=== PATIENT | male | born 1985 | race Caucasian/White ===

== ENCOUNTER 2017-07-31 13:20 | Emergency (ER) | payer OTHER ==
[2017-07-31 13:33] VITALS: RESP 18
[2017-07-31] MEDS ORDERED: ceFAZolin 1,000 MG VIAL IM STA (14:52)
--- NOTE | 2017-07-31 15:01 | ED ---
Wound/Laceration HPI - General Chief Complaint: Wound/Laceration Stated Complaint: R arm laceration. [facility] Time Seen by Provider: 07/31/17 13:29 Source: patient Mode of arrival: ambulatory Limitations: no limitations - History of Present Illness Initial Comments: 32-year-old male patient presents to emergency department today for evaluation of laceration to the volar aspect of the right forearm. Injury occurred around 1500. Patient states that he was installing a window, states that he was cutting the window with a knife when the knife broke and he accidentally cut his forearm. Patient states that he is having some tingling to the right fourth and fifth digits, states there is muscle exposed. Patient states that he does have full range of motion of his hand and elbow. Patient denies any significant pain. Patient denies any other injuries. Patient denies any headache, neck pain, back pain, chest pain, shortness of breath, dizziness, weakness, abdominal pain, nausea, vomiting, or difficulties with bowel movements or urination. Patient's last tetanus vaccine was one year ago. - Related Data Previous Rx's Medication Instructions Recorded Cephalexin [Keflex] 500 mg PO QID #28 cap 07/31/17 Hydrocodone/Acetaminophen [Monroe 1 tab PO Q6HR PRN #15 tab 07/31/17 5-325] Allergies Allergy/AdvReac Type Severity Reaction Status Date / Time bee pollen Allergy Anaphylaxis Verified 07/31/17 14:11 Review of Systems ROS Statement: Those systems with pertinent positive or pertinent negative responses have been documented in the HPI. ROS Other: All systems not noted in ROS Statement are negative. Past Medical History Past Medical History: No Reported History History of Any Multi-Drug Resistant Organisms: None Reported Past Surgical History: No Surgical Hx Reported Past Psychological History: No Psychological Hx Reported Smoking Status: Never smoker Past Alcohol Use History: None Reported Past Drug Use History: None Reported General Exam Limitations: no limitations General appearance: alert, in no apparent distress Respiratory exam: Present: normal lung sounds bilaterally. Absent: respiratory distress, wheezes, rales, rhonchi, stridor Cardiovascular Exam: Present: regular rate, normal rhythm, normal heart sounds. Absent: systolic murmur, diastolic murmur, rubs, gallop, clicks Extremities exam: Present: full ROM, normal capillary refill, other (10 cm wide laceration to the volar aspect of the right forearm. Muscle, tendon, and ulnar artery is exposed. Ulnar artery does not appear to be damaged. There is a lacerated tendon present, detachment from the distal aspect is noted with no evidence of the proximal attachment. Patient has full range of motion of all fingers strengthened fingers is intact. Skin is pink, warm, and dry. Cap refills less than 3 seconds.). Absent: normal inspection, tenderness, pedal edema, joint swelling, calf tenderness Neurological exam: Present: alert, oriented X3, CN II-XII intact Psychiatric exam: Present: normal affect, normal mood Skin exam: Present: warm, dry, intact, normal color. Absent: rash Course Vital Signs 07/31/17 13:29 Temperature 97.1 F L Pulse Rate 77 Respiratory 18 Rate Blood Pressure 117/70 O2 Sat by Pulse 96 Oximetry Procedures - Laceration Laceration #1 Consent Obtained: verbal consent Time Out Performed: Yes Indication: laceration Site: upper extremity (Volar aspect of the right forearm starting near the wrist ) Size (cm): 10 Description: linear Depth: involves muscle layer, involves tendon Anesthetic Used: lidocaine 1% Anesthesia Technique: local infiltration Amount (mls): 16 Pre-repair: wound explored, irrigated extensively Type of Sutures: nylon Size of Sutures: 5-0 Number of Sutures: 6 Technique: simple, interrupted Patient Tolerated Procedure: well, no complications Additional Comments: Loose approximation of wound edges. Medical Decision Making - Medical Decision Making 32-year-old male patient presented to emergency department today for evaluation of laceration to the right forearm. Exploration of the wound did reveal tendon injury as well as involvement of muscle. Dr. Mayes my attending did come and evaluate the wound recommended a call to orthopedics. Did call and speak to Cathleen LARA for [facility] Dr. Coon, she stated to loosely approximate the laceration, apply dressing, and have the patient follow up for an appointment tomorrow for further evaluation of the wound and possible closure in the OR. 6 sutures were placed after extensive cleaning and irrigation. Patient was given an IM dose of in the ER. He was started on Keflex outpatient. He was given Monroe for pain control. His tetanus was up-to- date one year ago. Did call and obtain an appointment for patient [facility] tomorrow at 0950. Patient has been informed of this appointment and states he will keep it. Patient instructed to not remove dressing or get it wet until follow-up with orthopedics. Patient instructed to return here immediately for any new, worsening, or concerning symptoms. Patient verbalizes understanding and agrees with this plan. Disposition Clinical Impression: Laceration of forearm, right, with tendon involvement Disposition: HOME SELF-CARE Condition: Good Instructions: Care For Your Stitches (ED), Laceration (ED) Additional Instructions: You have an appointment tomorrow with Dr. Coon [facility] at 9:50 AM. Please do not miss this appointment. Keep the dressing in place until follow-up with orthopedics tomorrow. Complete antibiotic prescription in full. Do not submerse arm and any type of water or get wet until follow up. Work status to be determined by orthopedic physician. Return here immediately for any new, worsening, or concerning symptoms. Prescriptions: Cephalexin [Keflex] 500 mg PO QID #28 cap Hydrocodone/Acetaminophen [Monroe 5-325] 1 tab PO Q6HR PRN #15 tab PRN Reason: Pain Referrals: Penelope Fontaine MD [Primary Care Provider] - 1-2 days Time of Disposition: 14:54
[2017-07-31 15:27] VITALS: BP 154/89; PULSE 110; TEMP 97.5
== END 2017-07-31 15:28 | disposition home or self-care (01) ==
LOC: EC 13:20
DX: S51.811A Laceration without foreign body of right forearm, initial encounter (principal); Z91.030 Bee allergy status; W26.0XXA Contact with knife, initial encounter; Y93.89 Activity, other specified
CPT/HCPCS: 99282; 96372; 12004; J0690

== ENCOUNTER 2022-11-29 09:49 | Emergency (ER) | payer OTHER ==
[2022-11-29 09:52] VITALS: TEMP 97.5
[2022-11-29] MEDS ORDERED: LORazepam 2 MG/ML INJ IV STA (10:11)
--- NOTE | 2022-11-29 10:45 | ED ---
General Adult HPI - General Chief complaint: Anxiety Stated complaint: mental health Time Seen by Provider: 11/29/22 09:53 Source: patient, RN notes reviewed Mode of arrival: ambulatory Limitations: no limitations - History of Present Illness Initial comments: 37-year-old male presents emergency Department chief complaint of anxiety, chest pain. Patient states that he has a history of hypertension is not on current medications. Patient states that he felt like his heart was racing states she came very anxious, patient is tearful and crying over this event. Patient states that his pain no ulcers chest and his back hurts when he moves. Denies any rashes. Denies any nausea vomiting no prior cardiac disease otherwise. No history of lung disease patient does admit that he uses alcohol frequently. - Related Data Home Medications Medication Instructions Recorded Confirmed No Known Home Medications 11/29/22 11/29/22 Allergies Allergy/AdvReac Type Severity Reaction Status Date / Time bee pollen Allergy Anaphylaxis Verified 11/29/22 11:37 Review of Systems ROS Statement: Those systems with pertinent positive or pertinent negative responses have been documented in the HPI. ROS Other: All systems not noted in ROS Statement are negative. Past Medical History Past Medical History: No Reported History History of Any Multi-Drug Resistant Organisms: None Reported Past Surgical History: No Surgical Hx Reported Past Psychological History: Anxiety Past Alcohol Use History: None Reported Past Drug Use History: None Reported General Exam Limitations: no limitations General appearance: alert, in no apparent distress, anxious Head exam: Present: atraumatic, normocephalic, normal inspection Eye exam: Present: normal appearance, PERRL, EOMI. Absent: scleral icterus, conjunctival injection, periorbital swelling ENT exam: Present: normal exam, normal oropharynx, mucous membranes moist Neck exam: Present: normal inspection, full ROM. Absent: tenderness, meningismus, lymphadenopathy Respiratory exam: Present: normal lung sounds bilaterally. Absent: respiratory distress, wheezes, rales, rhonchi, stridor Cardiovascular Exam: Present: normal rhythm, tachycardia, normal heart sounds. Absent: systolic murmur, diastolic murmur, rubs, gallop, clicks GI/Abdominal exam: Present: soft, normal bowel sounds. Absent: distended, tenderness, guarding, rebound, rigid Neurological exam: Present: alert, oriented X3 Psychiatric exam: Present: anxious Course Vital Signs 11/29/22 11/29/22 11/29/22 09:49 11:39 12:45 Temperature 97.5 F L Pulse Rate 103 H 73 89 Respiratory 20 18 18 Rate Blood Pressure 167/107 140/74 139/89 O2 Sat by Pulse 100 97 97 Oximetry EKG Findings - EKG Comments: EKG Findings:: EKG performed at 9 37 sinus rhythm rate of 92 NM 137 QRS 87 QT/QTC [id number] - EKG Results: EKG: interpreted by JAILYN Medical Decision Making - Medical Decision Making 37-year-old male presented for anxiety. Patient did have some complaints of chest pain associated with. It did seem to be anxiety driven. Patient for wor kup and the labs, EKG and chest x-ray. Chest x-ray interpreted by me with no acute abnormality. Patient was ER by psychiatric services. Patient advised that needs reset up his treatment with [facility]. Return parameters were discussed. - Lab Data Result diagrams: 11/29/22 10:25 11/29/22 10:25 Lab Results 11/29/22 11/29/22 11/29/22 Range/Units 10:25 10:25 10:25 WBC 7.8 (3.8-10.6) k/uL RBC 4.90 (4.30-5.90) m/uL Hgb 16.1 (13.0-17.5) gm/dL Hct 45.9 (39.0-53.0) % MCV 93.7 (80.0-100.0) fL MCH 32.8 (25.0-35.0) pg MCHC 35.0 (31.0-37.0) g/dL RDW 12.1 (11.5-15.5) % Plt Count 326 (150-450) k/uL MPV 7.5 Neutrophils % 75 % Lymphocytes % 14 % Monocytes % 7 % Eosinophils % 2 % Basophils % 1 % Neutrophils # 5.9 (1.3-7.7) k/uL Lymphocytes # 1.1 (1.0-4.8) k/uL Monocytes # 0.5 (0-1.0) k/uL Eosinophils # 0.2 (0-0.7) k/uL Basophils # 0.1 (0-0.2) k/uL PT 10.0 (9.0-12.0) sec INR 0.9 (<1.2) APTT 25.6 (22.0-30.0) sec Sodium 138 (137-145) mmol/L Potassium 3.8 (3.5-5.1) mmol/L Chloride 104 (98-107) mmol/L Carbon Dioxide 22 (22-30) mmol/L Anion Gap 12 mmol/L BUN 14 (9-20) mg/dL Creatinine 0.82 (0.66-1.25) mg/dL Est GFR (CKD-EPI)AfAm >90 (>60 ml/min/1.73 sqM) Est GFR (CKD-EPI)NonAf >90 (>60 ml/min/1.73 sqM) Glucose 275 H (74-99) mg/dL Calcium 8.9 (8.4-10.2) mg/dL Magnesium 1.7 (1.6-2.3) mg/dL Total Bilirubin 0.6 (0.2-1.3) mg/dL AST 67 H (17-59) U/L ALT 56 H (4-49) U/L Alkaline Phosphatase 97 (38-126) U/L Troponin I (0.000-0.034) ng/mL Total Protein 7.1 (6.3-8.2) g/dL Albumin 4.2 (3.5-5.0) g/dL Urine Opiates Screen (NotDetected) Ur Oxycodone Screen (NotDetected) Urine Methadone Screen (NotDetected) Ur Propoxyphene Screen (NotDetected) Ur Barbiturates Screen (NotDetected) U Tricyclic Antidepress (NotDetected) Ur Phencyclidine Scrn (NotDetected) Ur Amphetamines Screen (NotDetected) U Methamphetamines Scrn (NotDetected) U Benzodiazepines Scrn (NotDetected) Urine Cocaine Screen (NotDetected) U Marijuana (THC) Screen (NotDetected) 11/29/22 11/29/22 Range/Units 10:25 13:07 WBC (3.8-10.6) k/uL RBC (4.30-5.90) m/uL Hgb (13.0-17.5) gm/dL Hct (39.0-53.0) % MCV (80.0-100.0) fL MCH (25.0-35.0) pg MCHC (31.0-37.0) g/dL RDW (11.5-15.5) % Plt Count (150-450) k/uL MPV Neutrophils % % Lymphocytes % % Monocytes % % Eosinophils % % Basophils % % Neutrophils # (1.3-7.7) k/uL Lymphocytes # (1.0-4.8) k/uL Monocytes # (0-1.0) k/uL Eosinophils # (0-0.7) k/uL Basophils # (0-0.2) k/uL PT (9.0-12.0) sec INR (<1.2) APTT (22.0-30.0) sec Sodium (137-145) mmol/L Potassium (3.5-5.1) mmol/L Chloride (98-107) mmol/L Carbon Dioxide (22-30) mmol/L Anion Gap mmol/L BUN (9-20) mg/dL Creatinine (0.66-1.25) mg/dL Est GFR (CKD-EPI)AfAm (>60 ml/min/1.73 sqM) Est GFR (CKD-EPI)NonAf (>60 ml/min/1.73 sqM) Glucose (74-99) mg/dL Calcium (8.4-10.2) mg/dL Magnesium (1.6-2.3) mg/dL Total Bilirubin (0.2-1.3) mg/dL AST (17-59) U/L ALT (4-49) U/L Alkaline Phosphatase (38-126) U/L Troponin I <0.012 (0.000-0.034) ng/mL Total Protein (6.3-8.2) g/dL Albumin (3.5-5.0) g/dL Urine Opiates Screen Not Detected (NotDetected) Ur Oxycodone Screen Not Detected (NotDetected) Urine Methadone Screen Not Detected (NotDetected) Ur Propoxyphene Screen Not Detected (NotDetected) Ur Barbiturates Screen Not Detected (NotDetected) U Tricyclic Antidepress Not Detected (NotDetected) Ur Phencyclidine Scrn Not Detected (NotDetected) Ur Amphetamines Screen Not Detected (NotDetected) U Methamphetamines Scrn Not Detected (NotDetected) U Benzodiazepines Scrn Not Detected (NotDetected) Urine Cocaine Screen Not Detected (NotDetected) U Marijuana (THC) Screen Not Detected (NotDetected) Disposition Clinical Impression: Acute anxiety, Atypical chest pain, Panic attack Disposition: HOME SELF-CARE Condition: Stable Instructions (If sedation given, give patient instructions): Generalized Anxiety Disorder (ED) Additional Instructions: Please return to the Emergency Department if symptoms worsen or any other concerns. Is patient prescribed a controlled substance at d/c from ED?: No Referrals: Nonstaff,Physician [Primary Care Provider] - 1-2 days Time of Disposition: 14:01
[2022-11-29 10:54] LABS: Basophils # (A) 0.1 k/uL (0-0.2); Basophils % (A) 1 %; Eosinophils # (A) 0.2 k/uL (0-0.7); Eosinophils % (A) 2 %; HCT 45.9 % (39.0-53.0); HGB 16.1 gm/dL (13.0-17.5); Lymphocytes # (A) 1.1 k/uL (1.0-4.8); Lymphocytes % (A) 14 %; MCH 32.8 pg (25.0-35.0); MCV 93.7 fL (80.0-100.0); Mean Platelet Volume 7.5; Monocytes # (A) 0.5 k/uL (0-1.0); Monocytes % (A) 7 %; Neutrophils # (A) 5.9 k/uL (1.3-7.7); Neutrophils % (A) 75 %; Platelet Count 326 k/uL (150-450); RDW 12.1 % (11.5-15.5); WBC 7.8 k/uL (3.8-10.6)
[2022-11-29 11:03] LABS: INR 0.9 (<1.2); Partial Thromboplastin Time 25.6 sec (22.0-30.0)
--- NOTE | 2022-11-29 11:22 | XR ---
EXAMINATION TYPE: XR chest 2V DATE OF EXAM: 11/29/2022 COMPARISON: None INDICATION: Chest pain TECHNIQUE: Frontal and lateral views of the chest are obtained. FINDINGS: The heart size is normal. The pulmonary vasculature is normal. The lungs are clear. IMPRESSION: 1. No acute pulmonary process.
[2022-11-29 11:40] VITALS: RESP 18
[2022-11-29 11:40] LABS: Potassium 3.8 mmol/L (3.5-5.1)
[2022-11-29 11:41] LABS: ALT 56 U/L (4-49); AST 67 U/L (17-59); African American GFR (CKD) >90 (>60 ml/min/1.73 sqM); Albumin 4.2 g/dL (3.5-5.0); Alkaline Phosphatase 97 U/L (38-126); Anion Gap 12 mmol/L; Blood Urea Nitrogen 14 mg/dL (9-20); Calcium 8.9 mg/dL (8.4-10.2); Carbon Dioxide 22 mmol/L (22-30); Chloride 104 mmol/L (98-107); Glucose 275 mg/dL (74-99); Magnesium 1.7 mg/dL (1.6-2.3); Non-African American GFR(CKD) >90 (>60 ml/min/1.73 sqM); Sodium 138 mmol/L (137-145); Total Bilirubin 0.6 mg/dL (0.2-1.3); Total Protein 7.1 g/dL (6.3-8.2)
[2022-11-29 13:34] LABS: Amphetamine Screen,Urine Not Detected (NotDetected); Barbiturate Screen,Urine Not Detected (NotDetected); Benzodiazepines Screen,Urine Not Detected (NotDetected); Cocaine Screen,Urine Not Detected (NotDetected); Methadone Screen, Urine Not Detected (NotDetected); Opiate Screen,Urine Not Detected (NotDetected); Oxycodone Screen, Urine Not Detected (NotDetected); Phencyclidine Screen,Urine Not Detected (NotDetected); Tricyclic Antidepressant,Urine Not Detected (NotDetected); Urn Cannabinoid Scrn Not Detected (NotDetected)
[2022-11-29 14:20] VITALS: BP 147/101; PULSE 91
== END 2022-11-29 14:20 | disposition home or self-care (01) ==
LOC: EC 09:49
DX: F41.0 Panic disorder [episodic paroxysmal anxiety] (principal); R07.89 Other chest pain; Z91.030 Bee allergy status
CPT/HCPCS: 82075; 36415; 93005; 80053; 83735; 84484; 85025; 85610; 85730; 80306; 71046; 99284; 96374; J2060

== ENCOUNTER 2024-08-26 22:14 | Inpatient (IN) | payer OTHER ==
[2024-08-26] MEDS: LORazepam 2 MG/ML INJ IV STA (22:49)
--- NOTE | 2024-08-26 22:55 | ED ---
General Adult HPI - General Chief complaint: Alcohol Stated complaint: ETOH withdraw Time Seen by Provider: 08/26/24 22:21 Source: patient, RN notes reviewed, old records reviewed Mode of arrival: EMS Limitations: no limitations - History of Present Illness Initial comments: 39-year-old male history of EtOH abuse presenting with seizure. Patient has pr evious history of alcohol withdrawal seizure. Patient states he has been attempting to reduce his alcohol consumption over the past 2 weeks. Patient had seizure at home with postictal phase. He reports tremor. He does not want to be here currently but is agreeable with laboratory testing. No suicidal or homicidal ideation - Related Data Home Medications Medication Instructions Recorded Confirmed No Known Home Medications 11/29/22 11/29/22 Allergies Allergy/AdvReac Type Severity Reaction Status Date / Time bee pollen Allergy Anaphylaxis Verified 08/26/24 22:30 Review of Systems ROS Statement: Those systems with pertinent positive or pertinent negative responses have been documented in the HPI. ROS Other: All systems not noted in ROS Statement are negative. 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 Absent: tenderness, meningismus Respiratory exam: Present: normal lung sounds bilaterally. Absent: respiratory distress, wheezes Cardiovascular Exam: Present: regular rate, normal rhythm GI/Abdominal exam: Present: soft. Absent: distended, tenderness, guarding Neurological exam: Present: alert, oriented X3, CN II-XII intact. Absent: motor sensory deficit Psychiatric exam: Present: normal affect, normal mood Course Vital Signs 08/26/24 22:15 Temperature 97.7 F Pulse Rate 83 Respiratory 18 Rate Blood Pressure 180/106 O2 Sat by Pulse 93 L Oximetry Medical Decision Making - Medical Decision Making Was pt. sent in by a medical professional or institution (, PA, MAC ARTIST, urgent care, hospital, or jail...) When possible be specific @ -No Did you speak to anyone other than the patient for history (EMS, parent, family, police, friend...)? What history was obtained from this source @ -No Did you review nursing and triage notes (agree or disagree)? Why? @ -I reviewed and agree with nursing and triage notes Were old charts reviewed (outside hosp., previous admission, EMS record, old EKG, old radiological studies, urgent care reports/EKG's, jail records)? Report findings @ -No old charts were reviewed Differential Seizure: Recurrent seizure disorder, febrile seizure, alcohol withdrawal, stimulants, meningitis, encephalitis, intercranial hemorrhage, intracranial tumor, stroke, eclampsia, thyrotoxicosis, hypocalcemia, hyponatremia, hypernatremia, hypomagnesemia, psychogenic, this is not meant to be an all-inclusive list. EKG interpreted by me (3pts min.). @ -EKG: Sinus rhythm rate of 87, KS interval 140, QRS duration 85, QTc [address] segment elevation. X-rays interpreted by me (1pt min.). @ -None done CT interpreted by me (1pt min.). @ -None done U/S interpreted by me (1pt. min.). @ -None done What testing was considered but not performed or refused? (CT, X-rays, U/S, labs)? Why? @ -None What meds were considered but not given or refused? Why? @ -None Did you discuss the management of the patient with other professionals (professionals i.e. , PA, MAC ARTIST, lab, RT, psych nurse, social media campaign manager, vinyl dipper, teacher, chief business officer, case technician)? Give summary @ -Gladys covering for [facility] Was smoking cessation discussed for >3mins.? @ -No Was critical care preformed (if so, how long)? @ -No Were there social determinants of health that impacted care today? How? (Homelessness, low income, unemployed, alcoholism, drug addiction, transportatio n, low edu. Level, literacy, decrease access to med. care, senior living, rehab)? @ -No Was there de-escalation of care discussed even if they declined (Discuss DNR or withdrawal of care, Hospice)? DNR status @ -No What co-morbidities impacted this encounter? (DM, HTN, Smoking, COPD, CAD, Cancer, CVA, ARF, Chemo, Hep., AIDS, mental health diagnosis, sleep apnea, morbid obesity)? @ -None Was patient admitted / discharged? Hospital course, mention meds given and route, prescriptions, significant lab abnormalities, going to OR and other pertinent info. @ -[29-year-old male with seizure likely related to alcohol withdrawal. Patient drinks significant liquor daily but has been attempting to reduce his consumption in the past 2 weeks. Patient is hypernatremic and has an alcohol 350. Admitted to [facility] with concern for alcohol withdrawal, seizure, delirium tremens Undiagnosed new problem with uncertain prognosis? @ -No Drug Therapy requiring intensive monitoring for toxicity (Heparin, Nitro, Insulin, Cardizem)? @ -No Were any procedures done? @ -No Diagnosis/symptom? @Alcohol withdrawal seizure Acute, or Chronic, or Acute on Chronic? @ -Acute Uncomplicated (without systemic symptoms) or Complicated (systemic symptoms)? @ -Complicated Side effects of treatment? @ -No Exacerbation, Progression, or Severe Exacerbation? @ -No Poses a threat to life or bodily function? How? (Chest pain, USA, CT, pneumonia, PE, COPD, DKA, ARF, appy, cholecystitis, CVA, Diverticulitis, Homicidal, Suicidal, threat to staff... and all critical care pts) @ -Yes, delirium tremens, alcohol withdrawal seizure - Lab Data Result diagrams: 08/26/24 22:22 08/26/24 22:22 Lab Results 08/26/24 08/26/24 Range/Units 22:22 22:22 WBC 4.9 (3.8-10.6) k/uL RBC 4.52 (4.30-5.90) m/uL Hgb 15.8 (13.0-17.5) gm/dL Hct 45.8 (39.0-53.0) % MCV 101.4 H (80.0-100.0) fL MCH 34.9 (25.0-35.0) pg MCHC 34.4 (31.0-37.0) g/dL RDW 13.5 (11.5-15.5) % Plt Count 247 (150-450) k/uL MPV 7.7 Neutrophils % 48 % Lymphocytes % 36 % Monocytes % 9 % Eosinophils % 3 % Basophils % 1 % Neutrophils # 2.3 (1.3-7.7) k/uL Lymphocytes # 1.7 (1.0-4.8) k/uL Monocytes # 0.5 (0-1.0) k/uL Eosinophils # 0.2 (0-0.7) k/uL Basophils # 0.1 (0-0.2) k/uL Macrocytosis Slight Sodium 146 H (137-145) mmol/L Potassium 3.8 (3.5-5.1) mmol/L Chloride 109 H (98-107) mmol/L Carbon Dioxide 28 (22-30) mmol/L Anion Gap 9 mmol/L BUN 7 L (9-20) mg/dL Creatinine 0.70 (0.66-1.25) mg/dL Est GFR (CKD-EPI)AfAm >90 (>60 ml/min/1.73 sqM) Est GFR (CKD-EPI)NonAf >90 (>60 ml/min/1.73 sqM) Glucose 115 H (74-99) mg/dL Calcium 9.2 (8.4-10.2) mg/dL Magnesium 1.8 (1.6-2.3) mg/dL Total Bilirubin 0.6 (0.2-1.3) mg/dL AST 83 H (17-59) U/L ALT 44 (4-49) U/L Alkaline Phosphatase 90 (38-126) U/L Total Protein 7.5 (6.3-8.2) g/dL Albumin 4.5 (3.5-5.0) g/dL Serum Alcohol 356 H* mg/dL Disposition Clinical Impression: Alcohol withdrawal syndrome, Alcohol withdrawal seizure, Alcoholic intoxication Disposition: ADMITTED IP TO THIS HOSP Condition: Serious Is patient prescribed a controlled substance at d/c from ED?: No Referrals: None,Stated [Primary Care Provider] - 1-2 days Time of Disposition: 23:53
[2024-08-26 23:26] LABS: ALT 44 U/L (4-49); AST 83 U/L (17-59); African American GFR (CKD) >90 (>60 ml/min/1.73 sqM); Albumin 4.5 g/dL (3.5-5.0); Alkaline Phosphatase 90 U/L (38-126); Anion Gap 9 mmol/L; Blood Urea Nitrogen 7 mg/dL (9-20); Calcium 9.2 mg/dL (8.4-10.2); Carbon Dioxide 28 mmol/L (22-30); Chloride 109 mmol/L (98-107); Glucose 115 mg/dL (74-99); Magnesium 1.8 mg/dL (1.6-2.3); Non-African American GFR(CKD) >90 (>60 ml/min/1.73 sqM); Potassium 3.8 mmol/L (3.5-5.1); Sodium 146 mmol/L (137-145); Total Bilirubin 0.6 mg/dL (0.2-1.3); Total Protein 7.5 g/dL (6.3-8.2)
[2024-08-26 23:27] LABS: Basophils # (A) 0.1 k/uL (0-0.2); Basophils % (A) 1 %; Eosinophils # (A) 0.2 k/uL (0-0.7); Eosinophils % (A) 3 %; HCT 45.8 % (39.0-53.0); HGB 15.8 gm/dL (13.0-17.5); Lymphocytes # (A) 1.7 k/uL (1.0-4.8); Lymphocytes % (A) 36 %; MCH 34.9 pg (25.0-35.0); MCHC 34.4 g/dL (31.0-37.0); MCV 101.4 fL (80.0-100.0); Macrocytosis Slight; Mean Platelet Volume 7.7; Monocytes # (A) 0.5 k/uL (0-1.0); Monocytes % (A) 9 %; Neutrophils # (A) 2.3 k/uL (1.3-7.7); Neutrophils % (A) 48 %; Platelet Count 247 k/uL (150-450); RBC 4.52 m/uL (4.30-5.90); RDW 13.5 % (11.5-15.5); WBC 4.9 k/uL (3.8-10.6)
[2024-08-26 23:44] LABS: Alcohol 356 mg/dL
[2024-08-26] MEDS ORDERED: LORazepam 2 MG/ML INJ IV PRN (23:47)
[2024-08-26] MEDS ORDERED: NALOXONE 0.4 MG/ML 1 ML VIAL IV PRN (23:49)
[2024-08-26] MEDS ORDERED: ONDANSETRON 4 MG/2 ML VIAL IVP PRN (23:49)
[2024-08-26] MEDS ORDERED: ACETAMINOPHEN TAB 325 MG TAB PO PRN (23:49)
[2024-08-26] MEDS: SODIUM CHLORIDE 0.9% 1,000 ML IV SCH (23:57)
[2024-08-26] MEDS: SODIUM CHLORIDE 0.9% 1,000 ML IV ONE (23:57)
[2024-08-27] MEDS: LORazepam 2 MG/ML INJ IV PRN ×2 (08:11→19:58)
--- NOTE | 2024-08-27 14:08 | P.HPIM ---
History of Present Illness H&P Date: 08/27/24 Patient is a 39-year-old male with a past medical history of alcohol abuse and alcohol withdrawal seizures presented to the emergency department with for seizure. He states that he drinks 1/5 per day but has been trying to cut back. He endorses previous seizures but does not take any medications nor has he seen a neurologist. He has stopped taking [facility] He endorses a tremor. Patient states a desire to leave. He denies chest pain, dyspnea, abdominal pain. EKG shows normal sinus rhythm. WBCs 4.9, hemoglobin 15.8, MCV 101.4, sodium 146, potassium 3.8, AST 83, ALT 44, serum alcohol 356. Afebrile, initial blood pressure 180/106 then has subsequently been normotensive/mildly hypotensive 98/62, saturating well on 2 L nasal cannula. ED documentation reviewed. Review of systems: Pertinent positives and negatives as discussed in HPI, a complete review of systems was performed and all other systems are negative. Family history: Father-autoimmune disease unsure, sister-diabetes mellitus type 1, mother-thyroid issues Social history: Tobacco: Denies Alcohol: 1/5 per day Recreational drugs: Denies Travel: Denies Occupation: Unemployed Physical examination: Vital signs are reviewed. General: No acute distress. AOx4. HEENT: Head exam is unremarkable. EOMI bilaterally. ACs patent. Nares patent. Lungs: Bilateral breath sounds present; no rhonchi, wheezes, or rales. Heart: Rate and rhythm are regular. S1-S2 present. No murmur/rub/gallops. Abdomen: Soft, nontender, nondistended. Bowel sounds present. Extremities: No edema present. Symmetric movement. Psych: Normal affect and mood. Cooperative. Assessment/Plan: Alcohol withdrawal seizure Delirium tremens CIWA protocol Hypertension No home medications to resume Monitor vital signs Alcohol abuse DVT prophylaxis: Mechanical Chronic conditions: Alcohol abuse, hypertension The patient is admitted with an anticipated more than 2 midnight stay for eval uation of alcohol withdrawal seizures. 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, Past Psychological History: Anxiety, Depression, PTSD Smoking Status: Never smoker Past Alcohol Use History: Daily, Heavy Past Drug Use History: None Reported Medications and Allergies Home Medications Medication Instructions Recorded Confirmed Type No Known Home Medications 11/29/22 08/27/24 History Allergies Allergy/AdvReac Type Severity Reaction Status Date / Time bee pollen Allergy Anaphylaxis Verified 08/27/24 07:54 Physical Exam Vitals: Vital Signs Temp Pulse Resp BP Pulse Ox 08/27/24 07:34 66 18 163/115 97 08/27/24 06:02 91 16 125/99 93 L 08/27/24 04:13 69 16 110/75 98 08/27/24 02:35 75 16 104/72 100 08/27/24 01:30 70 16 98/62 99 08/27/24 00:13 87 16 104/68 98 08/26/24 22:15 97.7 F 83 18 180/106 93 L Intake and Output 08/26/24 08/27/24 08/27/24 22:59 06:59 14:59 Other: Weight 74.843 kg Results CBC & Chem 7: 08/26/24 22:22 08/26/24 22:22 Labs: Abnormal Lab Results - Last 24 Hours (Table) 08/26/24 08/26/24 Range/Units 22:22 22:22 MCV 101.4 H (80.0-100.0) fL Sodium 146 H (137-145) mmol/L Chloride 109 H (98-107) mmol/L BUN 7 L (9-20) mg/dL Glucose 115 H (74-99) mg/dL AST 83 H (17-59) U/L Serum Alcohol 356 H* mg/dL
[2024-08-27 23:24] VITALS: RESP 16; TEMP 98.2
[2024-08-28 10:12] LABS: African American GFR (CKD) >90 (>60 ml/min/1.73 sqM); Anion Gap 5 mmol/L; Blood Urea Nitrogen 9 mg/dL (9-20); Calcium 9.3 mg/dL (8.4-10.2); Carbon Dioxide 30 mmol/L (22-30); Chloride 101 mmol/L (98-107); Glucose 99 mg/dL (74-99); Non-African American GFR(CKD) >90 (>60 ml/min/1.73 sqM); Potassium 3.9 mmol/L (3.5-5.1); Sodium 136 mmol/L (137-145)
[2024-08-28 12:17] VITALS: BP 162/104; PULSE 74
--- NOTE | 2024-08-28 12:46 | P.DS ---
Providers Date of admission: 08/26/24 23:50 Attending physician: Thor Bruno Primary care physician: Stated None Hospital Course: Final Diagnosis: Seizure secondary to alcohol withdrawal Alcohol withdrawals Hypertension Patient is a 39-year-old male with a past medical history of alcohol abuse and alcohol withdrawal seizures presented to the emergency department with for seizure. He states that he drinks 1/5 per day but has been trying to cut back. He endorses previous seizures but does not take any medications nor has he seen a neurologist. He has stopped taking all of his medications prescribed to him by the [facility]. He endorses a tremor. Patient states a desire to leave. He denies chest pain, dyspnea, abdominal pain. EKG shows normal sinus rhythm. WBCs 4.9, hemoglobin 15.8, MCV 101.4, sodium 146, potassium 3.8, AST 83, ALT 44, serum alcohol 356. Afebrile, initial blood pressure 180/106 then has subsequently been normotensive/mildly hypotensive 98/62, saturating well on 2 L nasal cannula. 08/28. Patient seen and examined. Reports feeling improved from yesterday. Patient is medically stable for discharge. Patient educated on importance of alcohol abstinence. Physical examination: Vital signs are reviewed. General: No acute distress. AOx4. Tremors present. HEENT: Head exam is unremarkable. EOMI bilaterally. ACs patent. Nares patent. Lungs: Bilateral breath sounds present; no rhonchi, wheezes, or rales. Heart: Rate and rhythm are regular. S1-S2 present. No murmur/rub/gallops. Abdomen: Soft, nontender, nondistended. Bowel sounds present. Extremities: No edema present. Symmetric movement. Psych: Normal affect and mood. Cooperative. Patient Condition at Discharge: Stable Plan - Discharge Summary Discharge Rx Participant: Yes New Discharge Prescriptions: New chlordiazePOXIDE HCl [Librium] 25 mg PO DIRECTED 6 Days #20 capsule Losartan [Cozaar] 25 mg PO DAILY 30 Days #30 tab Discharge Medication List Losartan [Cozaar] 25 mg PO DAILY 30 Days #30 tab 08/28/24 [Rx] chlordiazePOXIDE HCl [Librium] 25 mg PO DIRECTED 6 Days #20 capsule 08/28/24 [Rx] Follow up Appointment(s)/Referral(s): None,Stated [Primary Care Provider] - [facility] [REFERRING] - 1 Week Discharge/Stand Alone Forms: AA Meetings [facility] Substance Abuse Facilities Discharge Disposition: HOME SELF-CARE
[2024-08-28 14:11] VITALS: BMI 23.6
== END 2024-08-28 15:47 | disposition home or self-care (01) | DRG 897 ==
LOC: EC 22:14 → 3SCARD 23:50
PROVIDERS: ADMIT Hospitalist; ATTEND Hospitalist
DX: F10.139 Alcohol abuse with withdrawal, unspecified (principal); I10 Essential (primary) hypertension; R56.9 Unspecified convulsions; Z56.0 Unemployment, unspecified; Y90.8 Blood alcohol level of 240 mg/100 ml or more; Z91.128 Patient's intentional underdosing of medication regimen for other reason; Z71.41 Alcohol abuse counseling and surveillance of alcoholic; Z79.899 Other long term (current) drug therapy
CPT/HCPCS: 36415; 80048; 80053; 80320; 83735; 85025; 93005; 96361; 96374; 96375; 96376; 99285

== ENCOUNTER 2024-11-10 18:31 | Inpatient (IN) | payer OTHER ==
--- NOTE | 2024-11-10 18:44 | ED ---
Alcohol HPI - General Stated Complaint: ETOH? Time Seen by Provider: 11/10/24 18:43 Source: patient, family, RN notes reviewed - History of Present Illness Initial Comments: Quick [id number] male present emergency department with girlfriend and sister for concern of alcohol intoxication. Record of history is reported from family due to patient's intoxicated state. Reported that patient heavily abuses alcohol and a history of alcohol withdrawal alcohol drawl seizures. - Related Data Home Medications Medication Instructions Recorded Confirmed Cholecalciferol (Vitamin D3) 2,000 unit PO DAILY 11/11/24 11/11/24 [Vitamin D3 (50 Mcg = 2000 Iu) Chew Tab] EPINEPHrine (Auto Inject) [Epipen] 0.3 mg IM ONCE PRN 11/11/24 11/11/24 hydrOXYzine pamoate [Vistaril] 25 mg PO QID PRN 11/11/24 11/11/24 Previous Rx's Medication Instructions Recorded Losartan [Cozaar] 25 mg PO DAILY 30 Days #30 tab 08/28/24 Folic Acid 1 mg PO DAILY #30 tab 11/12/24 Multivitamins, Thera [Multivitamin 1 each PO DAILY #30 tab 11/12/24 (formulary)] Thiamine [Vitamin B-1] 100 mg PO DAILY #30 tablet 11/12/24 chlordiazePOXIDE HCl [Librium] 25 mg PO QID #12 cap 11/12/24 Allergies Allergy/AdvReac Type Severity Reaction Status Date / Time bee pollen Allergy Anaphylaxis Verified 11/11/24 11:42 bee venom protein (honey bee) Allergy Anaphylaxis Verified 11/11/24 11:45 Review of Systems ROS Statement: Those systems with pertinent positive or pertinent negative responses have been documented in the HPI. ROS Other: All systems not noted in ROS Statement are negative. 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, right eye surgery, right wrist surgery Past Anesthesia/Blood Transfusion Reactions: No Reported Reaction Past Psychological History: Anxiety, Depression, PTSD Smoking Status: Never smoker Past Alcohol Use History: Daily, Heavy Past Drug Use History: None Reported - Past Family History Father Additional Family Medical History / Comment(s): psoriasis Mother Family Medical History: Thyroid Disorder Sister(s) Family Medical History: Diabetes Mellitus General Exam - General Exam Comments Initial Comments: Visual Physical Exam Vital signs reviewed General: ill-appearing, intoxicated, no acute distress. Head: Normocephalic, atraumatic Eyes: PERRLA, EOMI ENT: Airway patent Chest: Nonlabored breathing Skin: No visual rash, normal skin tone Neuro: Alert and oriented 3 Musculoskeletal: No gross abnormalities Course Vital Signs 11/10/24 11/10/24 11/10/24 18:59 19:32 20:40 Temperature Pulse Rate 78 84 82 Respiratory 14 16 18 Rate Blood Pressure 158/121 145/105 135/89 O2 Sat by Pulse 100 100 100 Oximetry 11/10/24 11/10/24 11/10/24 20:59 21:17 21:40 Temperature Pulse Rate 107 H 83 81 Respiratory 18 16 20 Rate Blood Pressure 142/105 132/92 123/85 O2 Sat by Pulse 96 100 100 Oximetry 11/11/24 11/11/24 11/11/24 01:33 03:41 06:06 Temperature 97.3 F L 97.4 F L Pulse Rate 80 82 75 Respiratory 18 19 19 Rate Blood Pressure 123/88 125/83 O2 Sat by Pulse 98 94 L 95 Oximetry Medical Decision Making - Medical Decision Making I completed the quick note portion of this chart signed Marika Watts PA-C - Lab Data Result diagrams: 11/11/24 06:16 11/12/24 07:08 Lab Results 11/10/24 11/10/24 11/10/24 Range/Units 19:09 19:11 19:11 WBC 6.7 (3.8-10.6) k/uL RBC 5.42 (4.30-5.90) m/uL Hgb 17.7 H (13.0-17.5) gm/dL Hct 53.8 H (39.0-53.0) % MCV 99.3 (80.0-100.0) fL MCH 32.7 (25.0-35.0) pg MCHC 32.9 (31.0-37.0) g/dL RDW 13.2 (11.5-15.5) % Plt Count 323 (150-450) k/uL MPV 6.7 Neutrophils % 53 % Lymphocytes % 35 % Monocytes % 5 % Eosinophils % 3 % Basophils % 1 % Neutrophils # 3.6 (1.3-7.7) k/uL Lymphocytes # 2.4 (1.0-4.8) k/uL Monocytes # 0.4 (0-1.0) k/uL Eosinophils # 0.2 (0-0.7) k/uL Basophils # 0.1 (0-0.2) k/uL Sodium 148 H (137-145) mmol/L Potassium 4.4 (3.5-5.1) mmol/L Chloride 109 H (98-107) mmol/L Carbon Dioxide 26 (22-30) mmol/L Anion Gap 13 mmol/L BUN 10 (9-20) mg/dL Creatinine 0.81 (0.66-1.25) mg/dL Est GFR (CKD-EPI)AfAm >90 (>60 ml/min/1.73 sqM) Est GFR (CKD-EPI)NonAf >90 (>60 ml/min/1.73 sqM) Glucose 112 H (74-99) mg/dL POC Glucose (mg/dL) 101 (70-110) mg/dL POC Glu Medical Coding Manager ID [facility] Calcium 9.2 (8.4-10.2) mg/dL Magnesium 2.2 (1.6-2.3) mg/dL Total Bilirubin 0.6 (0.2-1.3) mg/dL AST 53 (17-59) U/L ALT 30 (4-49) U/L Alkaline Phosphatase 123 (38-126) U/L Total Protein 8.7 H (6.3-8.2) g/dL Albumin 5.2 H (3.5-5.0) g/dL Lipase 126 (23-300) U/L Salicylates <1.0 mg/dL Acetaminophen <10.0 ug/mL Serum Alcohol 423 H* mg/dL Disposition Clinical Impression: Alcoholic intoxication Disposition: ADMITTED IP TO THIS HOSP Is patient prescribed a controlled substance at d/c from ED?: No Decision to Admit Reason: Admit from EC
[2024-11-10 19:14] LABS: Glucose,Whole Blood 101 mg/dL (70-110)
[2024-11-10] MEDS: levETIRAcetam IV 500 MG/5 ML VIAL IVP STA (19:21)
[2024-11-10] MEDS: LORazepam 2 MG/ML INJ IV STA ×5 (19:22→21:52)
[2024-11-10 19:27] LABS: Basophils # (A) 0.1 k/uL (0-0.2); Basophils % (A) 1 %; Eosinophils # (A) 0.2 k/uL (0-0.7); Eosinophils % (A) 3 %; HCT 53.8 % (39.0-53.0); HGB 17.7 gm/dL (13.0-17.5); Lymphocytes # (A) 2.4 k/uL (1.0-4.8); Lymphocytes % (A) 35 %; MCH 32.7 pg (25.0-35.0); MCHC 32.9 g/dL (31.0-37.0); MCV 99.3 fL (80.0-100.0); Mean Platelet Volume 6.7; Monocytes # (A) 0.4 k/uL (0-1.0); Monocytes % (A) 5 %; Neutrophils # (A) 3.6 k/uL (1.3-7.7); Neutrophils % (A) 53 %; Platelet Count 323 k/uL (150-450); RBC 5.42 m/uL (4.30-5.90); RDW 13.2 % (11.5-15.5); WBC 6.7 k/uL (3.8-10.6)
[2024-11-10] MEDS ORDERED: LORazepam 1 MG TAB PO PRN ×3 (19:31)
[2024-11-10] MEDS ORDERED: NALOXONE 0.4 MG/ML 1 ML VIAL IV PRN (19:31)
[2024-11-10] MEDS ORDERED: ONDANSETRON 4 MG/2 ML VIAL IVP PRN (19:31)
[2024-11-10] MEDS ORDERED: LORazepam 0.5 MG TAB PO PRN (19:31)
[2024-11-10] MEDS: SODIUM CHLORIDE 0.9% 1,000 ML IV STA (19:32)
[2024-11-10] MEDS: LORazepam 2 MG/ML INJ IV PRN (19:56)
--- NOTE | 2024-11-10 20:24 | CT ---
EXAMINATION TYPE: CT brain hira wo con DATE OF EXAM: 11/10/2024 8:11 PM COMPARISON: None. CLINICAL INDICATION: Male, 39 years old with history of sz, Seizure possible alcohol withdrawls. AMS. TECHNIQUE: CT of the brain is performed utilizing 3 mm thick sections through the posterior fossa and 3 mm thick sections through the remaining calvarium. Study is performed within 24 hours of arrival to the hospital. Contrast used: mL of , (none if empty) CT DLP: 2139.6 mGycm, Automated exposure control for dose reduction was used. FINDINGS: No abnormal hyperdensity is present to suggest an acute intracranial hemorrhage. No mass lesion is evident. No acute infarcts are evident. Ventricles and sulci are appropriate for the patient age. Paranasal sinuses and mastoid air cells within the [id number] are clear. IMPRESSIONS: 1. No acute intracranial process. Follow-up MRI can be performed as clinically indicated. CT cervical spine. COMPARISON: None TECHNIQUE: CT of the cervical spine is performed in the axial plane at 2 mm thick sections. Reconstr ucted images in the coronal, and sagittal plane are reviewed on the computer. FINDINGS: No acute fractures are evident. There appears to be some sidebending scoliosis of the cervical spine sagittal plane image interpretat ion. Disc heights are preserved. Vertebral body heights are preserved. No spinal canal stenosis is evident. No neural foraminal stenosis is evident. IMPRESSION: 1. No acute osseous abnormality cervical spine [facility], , 11/10/2024 8:22 PM
[2024-11-10 20:29] LABS: ALT 30 U/L (4-49); AST 53 U/L (17-59); Acetaminophen <10.0 ug/mL; African American GFR (CKD) >90 (>60 ml/min/1.73 sqM); Albumin 5.2 g/dL (3.5-5.0); Alkaline Phosphatase 123 U/L (38-126); Anion Gap 13 mmol/L; Blood Urea Nitrogen 10 mg/dL (9-20); Calcium 9.2 mg/dL (8.4-10.2); Carbon Dioxide 26 mmol/L (22-30); Chloride 109 mmol/L (98-107); Glucose 112 mg/dL (74-99); Lipase 126 U/L (23-300); Magnesium 2.2 mg/dL (1.6-2.3); Non-African American GFR(CKD) >90 (>60 ml/min/1.73 sqM); Potassium 4.4 mmol/L (3.5-5.1); Salicylate <1.0 mg/dL; Sodium 148 mmol/L (137-145); Total Bilirubin 0.6 mg/dL (0.2-1.3); Total Protein 8.7 g/dL (6.3-8.2)
[2024-11-10] MEDS: DEXTROSE 5%-0.45% NACL 1,000 ML IV SCH (20:38)
[2024-11-10 21:10] LABS: Alcohol 423 mg/dL
[2024-11-11] MEDS: LORazepam 2 MG/ML INJ IV PRN ×2 (06:27→10:10)
[2024-11-11] MEDS: FOLIC ACID 1 MG TAB PO SCH (08:02)
[2024-11-11] MEDS: MULTIVITAMINS, THERA 1 EACH TAB PO SCH (08:02)
[2024-11-11 10:35] LABS: Basophils # (A) 0.11 X 10*3/uL (0.00-0.10); Basophils % (A) 1.9 %; Eosinophils % (A) 5.2 %; HGB 14.9 g/dL (13.0-17.0); Lymphocytes # (A) 1.46 X 10*3/uL (0.90-5.00); Lymphocytes % (A) 25.1 %; MCH 32.9 pg (27.0-32.0); MCHC 33.1 g/dL (32.0-37.0); MCV 99.3 FL (80.0-97.0); Mean Platelet Volume 9.4 FL (9.5-12.2); Monocytes # (A) 0.58 X 10*3/uL (0.20-1.00); NRBC Per 100 WBC 0 X 10*3/uL (0.00-0.01); Neutrophils # (A) 3.33 X 10*3/uL (1.80-7.70); Neutrophils % (A) 57.3 %; Platelet Count 268 X 10*3/uL (140-440); RBC 4.53 X 10*6/uL (4.40-5.60); RDW 13.7 % (11.5-14.5); WBC 5.81 X 10*3/uL (4.50-10.00)
[2024-11-11 10:56] LABS: ALT 23 U/L (10-49); AST 46 U/L (14-35); Alkaline Phosphatase 68 U/L (41-126); BUN/Creat Ratio 14.29 Ratio (12.00-20.00); Calcium 8.4 mg/dL (8.7-10.3); Carbon Dioxide 27.5 mmol/L (21.6-31.8); Chloride 107 mmol/L (96-109); Globulin 2.5 g/dL (1.6-3.3); Glucose 80 mg/dL (70-110); Magnesium 1.9 mg/dL (1.5-2.4); Phosphorus 3.5 mg/dL (2.4-5.1); Potassium 4.2 mmol/L (3.5-5.5); Sodium 146 mmol/L (135-145); Total Bilirubin 0.6 mg/dL (0.3-1.2); Total Protein 6.5 g/dL (6.2-8.2)
[2024-11-11] MEDS: chlordiazePOXIDE 25 MG CAP PO SCH (12:46)
[2024-11-11] MEDS: CHOLECALCIFEROL 25 MCG (1000 IU) TABLET PO SCH (12:46)
[2024-11-11] MEDS: LOSARTAN 25 MG TAB PO SCH (12:47)
[2024-11-11] MEDS: hydrOXYzine pamoate 25 MG CAP PO PRN (18:10)
[2024-11-12 03:41] VITALS: TEMP 97.9
--- NOTE | 2024-11-12 04:40 | P.HPIM ---
History of Present Illness H&P Date: 11/11/24 This is a 39-year-old male who presented to the emergency department with alcohol intoxication with concerns of acute alcohol withdrawal and seizures. Patient has a past medical history of hypertension, continued ongoing EtOH abuse, and an autoimmune disease along with anxiety/depression/PTSD. Patient does drink heavily daily per family at the bedside and also smokes and denies any other illicit drug use. Patient was admitted with [facility] protocol with seizures. Patient was given a dose of Keppra per ED. Patient has had history of EtOH withdrawal seizures previously. Patient has attempted to quit multiple times and has been unsuccessful. Patient will be started on Librium taper and also consult social work for resources regarding alcohol rehab. REVIEW OF SYSTEMS: CONSTITUTIONAL: No fever, no malaise, reports of fatigue. HEENT: No recent visual problems or hearing problems. Denied any sore throat. CARDIOVASCULAR: No chest pain, orthopnea, PND, no palpitations, no syncope. PULMONARY: No shortness of breath, no cough, no hemoptysis. GASTROINTESTINAL: No diarrhea, no nausea, no vomiting, no abdominal pain. NEUROLOGICAL: No headaches, no weakness, no numbness. HEMATOLOGICAL: Denies any bleeding or petechiae. GENITOURINARY: Denies any burning micturition, frequency, or urgency. MUSCULOSKELETAL/RHEUMATOLOGICAL: Denies any joint pain, swelling, or any muscle pain. ENDOCRINE: Denies any polyuria or polydipsia. The rest of the 14-point review of systems is negative. PHYSICAL EXAMINATION: GENERAL: The patient is asleep although arousable, alert and oriented x3, not in any acute distress. Well developed, well nourished. HEENT: Pupils are round and equally reacting to light. EOMI. No scleral icterus. No conjunctival pallor. Normocephalic, atraumatic. No pharyngeal erythema. No thyromegaly. CARDIOVASCULAR: S1 and S2 present. No murmurs, rubs, or gallops. PULMONARY: Chest is clear to auscultation, no wheezing or crackles. ABDOMEN: Soft, nontender, nondistended, normoactive bowel sounds. No palpable organomegaly. MUSCULOSKELETAL: No joint swelling or deformity. EXTREMITIES: No cyanosis, clubbing, or pedal edema. NEUROLOGICAL: Gross neurological examination did not reveal any focal deficits. SKIN: No rashes. Assessment: Acute alcohol intoxication with concerns of acute delirium tremens Alcohol withdrawal seizures with history of History of hypertension History of significant PTSD Anxiety/depression history Continued ongoing nicotine abuse Autoimmune disease per patient, maintained on daily steroid GI prophylaxis DVT prophylaxis Full code Plan: Patient was admitted with concerns of EtOH withdrawal and seizures Patient drinks daily heavily and has attempted to quit but has been unsuccessful. Social work on consult for resources Continue to monitor for any seizure-like activity Continue CIWA protocol and will add Librium taper Follow-up on repeat labs and replace electrolytes per protocol If patient continues to be weak, will add PT/OT therapy for evaluation The impression and plan of care has been dictated by Gladys Reis, Nurse Practitioner as directed. Dr. Kory MD I have performed a history and examination and MDM of this patient, discussed the same with the dictator, and agree with the dictator's assessment and plan as written ,documented as a scribe. Based on total visit time, I have performed more than 50% of the visit. 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, right eye surgery, right wrist surgery Past Anesthesia/Blood Transfusion Reactions: No Reported Reaction Past Psychological History: Anxiety, Depression, PTSD Smoking Status: Never smoker Past Alcohol Use History: Daily, Heavy Past Drug Use History: None Reported - Past Family History Father Additional Family Medical History / Comment(s): psoriasis Mother Family Medical History: Thyroid Disorder Sister(s) Family Medical History: Diabetes Mellitus Medications and Allergies Home Medications Medication Instructions Recorded Confirmed Type RX: Losartan [Cozaar] 25 mg PO DAILY 30 Days #30 tab 08/28/24 11/11/24 Rx Cholecalciferol (Vitamin D3) 2,000 unit PO DAILY 11/11/24 11/11/24 History [Vitamin D3 (50 Mcg = 2000 Iu) Chew Tab] EPINEPHrine (Auto Inject) [Epipen] 0.3 mg IM ONCE PRN 11/11/24 11/11/24 History hydrOXYzine pamoate [Vistaril] 25 mg PO QID PRN 11/11/24 11/11/24 History Allergies Allergy/AdvReac Type Severity Reaction Status Date / Time bee pollen Allergy Anaphylaxis Verified 11/11/24 11:42 bee venom protein (honey bee) Allergy Anaphylaxis Verified 11/11/24 11:45 Physical Exam Vitals: Vital Signs Temp Pulse Resp BP Pulse Ox 11/11/24 06:06 97.4 F L 75 19 125/83 95 11/11/24 03:41 97.3 F L 82 19 94 L 11/11/24 01:33 80 18 123/88 98 11/10/24 21:40 81 20 123/85 100 11/10/24 21:17 83 16 132/92 100 11/10/24 20:59 107 H 18 142/105 96 11/10/24 20:40 82 18 135/89 100 11/10/24 19:32 84 16 145/105 100 11/10/24 18:59 78 14 158/121 100 Intake and Output 11/10/24 11/11/24 11/11/24 22:59 06:59 14:59 Other: Weight 72.575 kg Results CBC & Chem 7: 11/11/24 06:16 11/11/24 06:16 Labs: Abnormal Lab Results - Last 24 Hours (Table) 11/10/24 11/10/24 Range/Units 19:11 19:11 Hgb 17.7 H (13.0-17.5) gm/dL Hct 53.8 H (39.0-53.0) % Sodium 148 H (137-145) mmol/L Chloride 109 H (98-107) mmol/L Glucose 112 H (74-99) mg/dL Total Protein 8.7 H (6.3-8.2) g/dL Albumin 5.2 H (3.5-5.0) g/dL Serum Alcohol 423 H* mg/dL
[2024-11-12 07:57] LABS: African American GFR (CKD) >90 (>60 ml/min/1.73 sqM); Anion Gap 4 mmol/L; Blood Urea Nitrogen 12 mg/dL (9-20); Calcium 9.6 mg/dL (8.4-10.2); Carbon Dioxide 30 mmol/L (22-30); Chloride 103 mmol/L (98-107); Glucose 93 mg/dL (74-99); Non-African American GFR(CKD) >90 (>60 ml/min/1.73 sqM); Potassium 4.4 mmol/L (3.5-5.1); Sodium 137 mmol/L (137-145)
[2024-11-12 09:02] VITALS: BP 163/109; PULSE 88; RESP 15
[2024-11-12 09:14] LABS: Amphetamine Screen,Urine Not Detected (NotDetected); Barbiturate Screen,Urine Not Detected (NotDetected); Benzodiazepines Screen,Urine Detected (NotDetected); Cocaine Screen,Urine Not Detected (NotDetected); Methadone Screen, Urine Not Detected (NotDetected); Opiate Screen,Urine Not Detected (NotDetected); Oxycodone Screen, Urine Not Detected (NotDetected); Phencyclidine Screen,Urine Not Detected (NotDetected); Tricyclic Antidepressant,Urine Not Detected (NotDetected); Urn Cannabinoid Scrn Not Detected (NotDetected)
--- NOTE | 2024-11-13 13:07 | P.DS ---
Providers Date of admission: 11/10/24 19:31 Expected date of discharge: 11/12/24 Attending physician: Thor Bruno Primary care physician: Stated None Hospital Course: Final diagnosis Acute alcohol intoxication with concerns of acute delirium tremens Alcohol withdrawal seizures, with history of, was given a dose of Keppra in ER and does not take Keppra outpatient History of hypertension History of significant PTSD Anxiety/depression history Continued ongoing nicotine abuse Autoimmune disease per patient, maintained on daily steroid GI prophylaxis DVT prophylaxis Full code Discharge disposition Patient is being discharged in a stable condition with guarded prognosis to home. Patient will follow-up with primary care provider in [place] in the outpatient setting upon discharge. Patient is to continue with Librium taper and strongly recommend inpatient alcohol rehab intake outpatient as scheduled. Total time taken is greater than 35 minutes. Hospital course This is a 39-year-old male who was recently admitted with alcohol intoxication with concerns of acute delirium tremens and alcohol withdrawal seizure. No further seizure-like activity noted and patient was given a loading dose of Keppra in the ER and placed on CIWA protocol. Patient was started on Librium taper and has not required Ativan and is much more awake and alert with steady gait. Patient will not continue on Keppra outpatient and has been instructed and strongly encouraged to attend inpatient alcohol rehab. Resources were provided and patient will continue a Librium taper on discharge. Family at the bedside with questions and concerns that were answered to the best of our ability. Currently no reports of chest pain, shortness of breath, or palpitations. Patient is afebrile. No reports of nausea or vomiting and patient is tolerating diet. Patient will be discharged home today. High risk for readmissions given patient's continued ongoing alcohol abuse and noncompliance. Physical exam: Gen: This is a 39-year-old male who is awake, alert and oriented x 3, well- developed, well-nourished HEENT: Head is atraumatic, normocephalic. Pupils equal, round. Sclerae is anicteric. NECK: Supple. No JVD. No lymphadenopathy. No thyromegaly. LUNGS: Clear to auscultation. No wheezes or rhonchi. No intercostal retractions. HEART: Regular rate and rhythm. No murmur. ABDOMEN: Soft. Bowel sounds are present. No masses. No tenderness. EXTREMITIES: No pedal edema. No calf tenderness. Mild tremors noted of upper extremities. NEUROLOGICAL: Patient is awake, alert and oriented x3. Cranial nerves 2 through 12 are grossly intact. Gait steady on exam Please refer to medication reconciliation sheet for a list of medications. The impression and plan of care has been dictated by Gladys Reis, Nurse Practitioner as directed. Dr. Kory MD I have performed a history and examination and MDM of this patient, discussed the same with the dictator, and agree with the dictator's assessment and plan as written ,documented as a scribe. Based on total visit time, I have performed more than 50% of the visit. Patient Condition at Discharge: Fair Plan - Discharge Summary New Discharge Prescriptions: New chlordiazePOXIDE HCl [Librium] 25 mg PO QID #12 cap Thiamine [Vitamin B-1] 100 mg PO DAILY #30 tablet Folic Acid 1 mg PO DAILY #30 tab Multivitamins, Thera [Multivitamin (formulary)] 1 each PO DAILY #30 tab Continue hydrOXYzine pamoate [Vistaril] 25 mg PO QID PRN PRN Reason: Anxiety EPINEPHrine (Auto Inject) [Epipen] 0.3 mg IM ONCE PRN PRN Reason: Anaphylaxis Cholecalciferol (Vitamin D3) [Vitamin D3 (50 Mcg = 2000 Iu) Chew Tab] 2,000 unit PO DAILY Losartan [Cozaar] 25 mg PO DAILY 30 Days #30 tab Discharge Medication List Losartan [Cozaar] 25 mg PO DAILY 30 Days #30 tab 08/28/24 [Rx] Cholecalciferol (Vitamin D3) [Vitamin D3 (50 Mcg = 2000 Iu) Chew Tab] 2,000 unit PO DAILY 11/11/24 [History] EPINEPHrine (Auto Inject) [Epipen] 0.3 mg IM ONCE PRN 11/11/24 [History] hydrOXYzine pamoate [Vistaril] 25 mg PO QID PRN 11/11/24 [History] Folic Acid 1 mg PO DAILY #30 tab 11/12/24 [Rx] Multivitamins, Thera [Multivitamin (formulary)] 1 each PO DAILY #30 tab 11/12/24 [Rx] Thiamine [Vitamin B-1] 100 mg PO DAILY #30 tablet 11/12/24 [Rx] chlordiazePOXIDE HCl [Librium] 25 mg PO QID #12 cap 11/12/24 [Rx] Follow up Appointment(s)/Referral(s): None,Stated [Primary Care Provider] - 1-2 days Activity/Diet/Wound Care/Special Instructions: Activity limited until follow-up Follow-up with primary care provider Follow-up with inpatient alcohol rehab Continue using Librium taper Avoid all alcohol use and exposure Discharge Disposition: HOME SELF-CARE
== END 2024-11-12 11:40 | disposition home or self-care (01) | DRG 897 ==
LOC: EC 18:31 → 4SSUR 19:31 → UNDODISIN 11-11 07:44 → 1SOBS 11-11 07:56
PROVIDERS: ADMIT Hospitalist; ATTEND Hospitalist
DX: F10.129 Alcohol abuse with intoxication, unspecified (principal); F32.A Depression, unspecified; F41.9 Anxiety disorder, unspecified; F43.10 Post-traumatic stress disorder, unspecified; I10 Essential (primary) hypertension; R56.9 Unspecified convulsions; Z79.899 Other long term (current) drug therapy; Z28.310 Unvaccinated for COVID-19; Z28.21 Immunization not carried out because of patient refusal
CPT/HCPCS: 36415; 70450; 72125; 80048; 80053; 80143; 80179; 80306; 80320; 83690; 83735; 84100; 85025; 96361; 96374; 96375; 96376; 99285

== ENCOUNTER 2024-11-14 22:51 | Observation (INO) | payer OTHER ==
--- NOTE | 2024-11-14 23:27 | ED ---
Alcohol HPI - General Chief Complaint: Alcohol Stated Complaint: Weakness Time Seen by Provider: 11/14/24 23:23 Source: patient, family, RN notes reviewed Mode of arrival: wheelchair Limitations: no limitations - History of Present Illness Initial Comments: 39-year-old male with history of alcohol use disorder and hypertension presenting to the ER with girlfriend for concerns for acute alcohol intoxication and withdrawal. Patient was discharged 2 days ago after being admitted for alcohol withdrawal seizures. Girlfriend reports patient has been "in and out of it" for 5 hours. States there was an episode where his eyes rolled back in his head. Patient was also complaining of bilateral leg pain that was relieved when he took a warm shower. Denies known fall or injury to the head. Denies blood thinners. Last drink was about 30 minutes ago. - Related Data Home Medications Medication Instructions Recorded Confirmed Cholecalciferol (Vitamin D3) 2,000 unit PO DAILY 11/11/24 11/11/24 [Vitamin D3 (50 Mcg = 2000 Iu) Chew Tab] EPINEPHrine (Auto Inject) [Epipen] 0.3 mg IM ONCE PRN 11/11/24 11/11/24 hydrOXYzine pamoate [Vistaril] 25 mg PO QID PRN 11/11/24 11/11/24 Previous Rx's Medication Instructions Recorded Losartan [Cozaar] 25 mg PO DAILY 30 Days #30 tab 08/28/24 Folic Acid 1 mg PO DAILY #30 tab 11/12/24 Multivitamins, Thera [Multivitamin 1 each PO DAILY #30 tab 11/12/24 (formulary)] Thiamine [Vitamin B-1] 100 mg PO DAILY #30 tablet 11/12/24 chlordiazePOXIDE HCl [Librium] 25 mg PO QID #12 cap 11/12/24 Allergies Allergy/AdvReac Type Severity Reaction Status Date / Time bee pollen Allergy Anaphylaxis Verified 11/14/24 23:00 bee venom protein (honey bee) Allergy Anaphylaxis Verified 11/14/24 23:00 Review of Systems ROS Statement: Those systems with pertinent positive or pertinent negative responses have been documented in the HPI. ROS Other: All systems not noted in ROS Statement are negative. 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, right eye surgery, right wrist surgery Past Anesthesia/Blood Transfusion Reactions: No Reported Reaction Past Psychological History: Anxiety, Depression, PTSD Smoking Status: Never smoker Past Alcohol Use History: Daily, Heavy Past Drug Use History: None Reported - Past Family History Father Additional Family Medical History / Comment(s): psoriasis Mother Family Medical History: Thyroid Disorder Sister(s) Family Medical History: Diabetes Mellitus General Exam Limitations: no limitations, altered mental status General appearance: other (Patient only responding to questions with nodding or shaking head) Head exam: Present: atraumatic, normocephalic, normal inspection Eye exam: Present: normal appearance, PERRL, EOMI. Absent: scleral icterus, conjunctival injection, periorbital swelling Respiratory exam: Present: normal lung sounds bilaterally. Absent: respiratory distress, wheezes, rales, rhonchi, stridor Cardiovascular Exam: Present: regular rate, normal rhythm, normal heart sounds. Absent: systolic murmur, diastolic murmur, rubs, gallop, clicks Skin exam: Present: warm, dry, intact, normal color. Absent: rash Course Vital Signs 11/14/24 11/14/24 11/15/24 22:54 23:51 00:45 Temperature 98.4 F 97.8 F Pulse Rate 95 108 H 87 Respiratory 16 16 16 Rate Blood Pressure 148/99 128/80 122/77 O2 Sat by Pulse 97 95 95 Oximetry Medical Decision Making - Medical Decision Making Was pt. sent in by a medical professional or institution (, PA, CHRONOGRAPH OPERATOR, urgent care, hospital, or [facility]...) When possible be specific @ -No Did you speak to anyone other than the patient for history (EMS, parent, family, police, friend...)? What history was obtained from this source @ -Girlfriend provided history Did you review nursing and triage notes (agree or disagree)? Why? @ -I reviewed and agree with nursing and triage notes Were old charts reviewed (outside hosp., previous admission, EMS record, old EKG, old radiological studies, urgent care reports/EKG's, [facility] records)? Report findings @ -No old charts were reviewed Differential Diagnosis (chest pain, altered mental status, abdominal pain women, abdominal pain men, vaginal bleeding, weakness, fever, dyspnea, syncope, headache, dizziness, GI bleed, back pain, seizure, CVA, palpatations, mental health, musculoskeletal)? @ -Acute alcohol intoxication, alcohol withdrawal EKG interpreted by me (3pts min.). @ -As above X-rays interpreted by me (1pt min.). @ -None done CT interpreted by me (1pt min.). @ -CT brain reveals no intracranial abnormality U/S interpreted by me (1pt. min.). @ -None done What testing was considered but not performed or refused? (CT, X-rays, U/S, labs)? Why? @ -None What meds were considered but not given or refused? Why? @ -None Did you discuss the management of the patient with other professionals (professionals i.e. , PA, CHRONOGRAPH OPERATOR, lab, RT, psych nurse, social media project manager, chief of anesthesiology, teacher, fire management officer, leather case finisher)? Give summary @ -No Was smoking cessation discussed for >3mins.? @ -No Was critical care preformed (if so, how long)? @ -No Were there social determinants of health that impacted care today? How? (Homelessness, low income, unemployed, alcoholism, drug addiction, transportation, low edu. Level, literacy, decrease access to med. care, custodial, rehab)? @ -No Was there de-escalation of care discussed even if they declined (Discuss DNR or withdrawal of care, Hospice)? DNR status @ -No What co-morbidities impacted this encounter? (DM, HTN, Smoking, COPD, CAD, Ca ncer, CVA, ARF, Chemo, Hep., AIDS, mental health diagnosis, sleep apnea, morbid obesity)? @ -None Was patient admitted / discharged? Hospital course, mention meds given and route, prescriptions, significant lab abnormalities, going to OR and other pertinent info. @ -Admitted. This is a 39-year-old male with history of alcohol withdrawal seizures presenting for acute alcohol intoxication. Was recently discharged 2 days ago after admission for withdrawal seizures. Patient's last drink was 30 minutes prior to arrival. Vital signs are within acceptable limits. Seizure precautions placed. CT brain reveals no intracranial abnormality. EKG reveals sinus tachycardia with no ST changes. Lab work remarkable for serum alcohol 298, lactic acid 2.2, creatinine kinase 358. Results discussed with patient. CIWA protocol initiated and patient admitted as he will likely withdrawal after acute intoxication. Case was discussed with my ED attending Dr. Sylvester. Undiagnosed new problem with uncertain prognosis? @ -No Drug Therapy requiring intensive monitoring for toxicity (Heparin, Nitro, Insu dona, Cardizem)? @ -No Were any procedures done? @ -No Diagnosis/symptom? @ -Acute alcohol intoxication Acute, or Chronic, or Acute on Chronic? @ -Acute Uncomplicated (without systemic symptoms) or Complicated (systemic symptoms)? @ -Complicated Side effects of treatment? @ -No Exacerbation, Progression, or Severe Exacerbation? @ -No Poses a threat to life or bodily function? How? (Chest pain, USA, AR, pneumonia, PE, COPD, DKA, ARF, appy, cholecystitis, CVA, Diverticulitis, Homicidal, Suicidal, threat to staff... and all critical care pts) @ -Yes, alcohol withdrawal seizures - Lab Data Result diagrams: 11/14/24 23:34 11/14/24 23:33 Lab Results 11/14/24 11/14/24 11/14/24 Range/Units 23:33 23:33 23:33 WBC (3.8-10.6) k/uL RBC (4.30-5.90) m/uL Hgb (13.0-17.5) gm/dL Hct (39.0-53.0) % MCV (80.0-100.0) fL MCH (25.0-35.0) pg MCHC (31.0-37.0) g/dL RDW (11.5-15.5) % Plt Count (150-450) k/uL MPV Neutrophils % % Lymphocytes % % Monocytes % % Eosinophils % % Basophils % % Neutrophils # (1.3-7.7) k/uL Lymphocytes # (1.0-4.8) k/uL Monocytes # (0-1.0) k/uL Eosinophils # (0-0.7) k/uL Basophils # (0-0.2) k/uL PT 9.6 L (10.0-12.5) sec INR 0.8 (<1.2) APTT 26.1 (22.0-30.0) sec Sodium 145 (137-145) mmol/L Potassium 4.0 (3.5-5.1) mmol/L Chloride 108 H (98-107) mmol/L Carbon Dioxide 25 (22-30) mmol/L Anion Gap 12 mmol/L BUN 10 (9-20) mg/dL Creatinine 0.67 (0.66-1.25) mg/dL Est GFR (CKD-EPI)AfAm >90 (>60 ml/min/1.73 sqM) Est GFR (CKD-EPI)NonAf >90 (>60 ml/min/1.73 sqM) Glucose 96 (74-99) mg/dL Plasma Lactic Acid Eldon 2.2 H* (0.7-2.0) mmol/L Calcium 9.1 (8.4-10.2) mg/dL Total Bilirubin 0.4 (0.2-1.3) mg/dL AST 42 (17-59) U/L ALT 25 (4-49) U/L Alkaline Phosphatase 101 (38-126) U/L Creatine Kinase 358 H (55-170) U/L Total Protein 7.4 (6.3-8.2) g/dL Albumin 4.6 (3.5-5.0) g/dL Lipase 123 (23-300) U/L Serum Alcohol 298 H* mg/dL 11/14/24 Range/Units 23:34 WBC 8.0 (3.8-10.6) k/uL RBC 4.70 (4.30-5.90) m/uL Hgb 15.4 (13.0-17.5) gm/dL Hct 46.2 (39.0-53.0) % MCV 98.4 (80.0-100.0) fL MCH 32.9 (25.0-35.0) pg MCHC 33.4 (31.0-37.0) g/dL RDW 13.4 (11.5-15.5) % Plt Count 244 (150-450) k/uL MPV 7.3 Neutrophils % 57 % Lymphocytes % 25 % Monocytes % 8 % Eosinophils % 6 % Basophils % 1 % Neutrophils # 4.5 (1.3-7.7) k/uL Lymphocytes # 2.0 (1.0-4.8) k/uL Monocytes # 0.6 (0-1.0) k/uL Eosinophils # 0.5 (0-0.7) k/uL Basophils # 0.1 (0-0.2) k/uL PT (10.0-12.5) sec INR (<1.2) APTT (22.0-30.0) sec Sodium (137-145) mmol/L Potassium (3.5-5.1) mmol/L Chloride (98-107) mmol/L Carbon Dioxide (22-30) mmol/L Anion Gap mmol/L BUN (9-20) mg/dL Creatinine (0.66-1.25) mg/dL Est GFR (CKD-EPI)AfAm (>60 ml/min/1.73 sqM) Est GFR (CKD-EPI)NonAf (>60 ml/min/1.73 sqM) Glucose (74-99) mg/dL Plasma Lactic Acid Eldon (0.7-2.0) mmol/L Calcium (8.4-10.2) mg/dL Total Bilirubin (0.2-1.3) mg/dL AST (17-59) U/L ALT (4-49) U/L Alkaline Phosphatase (38-126) U/L Creatine Kinase (55-170) U/L Total Protein (6.3-8.2) g/dL Albumin (3.5-5.0) g/dL Lipase (23-300) U/L Serum Alcohol mg/dL - EKG Data -: EKG Interpreted by Me EKG Comments: EKG reveals sinus tachycardia with no acute ST changes. Ventricular rate 102 bpm, ND interval 130, QRS duration 90, QT/QTc 318/376 Disposition Clinical Impression: Acute alcohol intoxication Disposition: ADMITTED IP TO THIS HOSP Referrals: None,Stated [Primary Care Provider] - 1-2 days Time of Disposition: 01:31
[2024-11-14 23:58] LABS: Basophils # (A) 0.1 k/uL (0-0.2); Basophils % (A) 1 %; Eosinophils # (A) 0.5 k/uL (0-0.7); Eosinophils % (A) 6 %; HCT 46.2 % (39.0-53.0); HGB 15.4 gm/dL (13.0-17.5); Lymphocytes % (A) 25 %; MCH 32.9 pg (25.0-35.0); MCHC 33.4 g/dL (31.0-37.0); MCV 98.4 fL (80.0-100.0); Mean Platelet Volume 7.3; Monocytes # (A) 0.6 k/uL (0-1.0); Monocytes % (A) 8 %; Neutrophils # (A) 4.5 k/uL (1.3-7.7); Neutrophils % (A) 57 %; Platelet Count 244 k/uL (150-450); RDW 13.4 % (11.5-15.5)
--- NOTE | 2024-11-15 00:07 | CT ---
EXAMINATION TYPE: CT brain wo con DATE OF EXAM: 11/15/2024 12:00 AM COMPARISON: None. CLINICAL INDICATION: Male, 39 years old with history of altered mental status, Hx ETOH abuse +ETOH to day. Pt. refusing to answer questions or provide information regarding visit today but nods yes when asked if he is here to detox. Pt. kicking wheelchair and asking staff to "shut up" when he does choos e to talk. Denies SI/HI. TECHNIQUE: CT of the brain is performed utilizing 3 mm thick sections through the posterior fossa and 3 mm thick sections through the remaining calvarium. Study is performed within 24 hours of arrival to the hospital. Contrast used: mL of , (none if empty) CT DLP: 1419.2 mGycm, Automated exposure control for dose reduction was used. FINDINGS: No abnormal hyperdensity is present to suggest an acute intracranial hemorrhage. No mass lesion is evident. No acute infarcts are evident. Ventricles and sulci are appropriate for the patient age. Paranasal sinuses and mastoid air cells within the [id number] are clear. IMPRESSION: 1. No acute intracranial process. Follow up MRI can be performed as clinically indicated. [facility], , 11/15/2024 12:04 AM
[2024-11-15 00:09] LABS: ALT 25 U/L (4-49); AST 42 U/L (17-59); African American GFR (CKD) >90 (>60 ml/min/1.73 sqM); Albumin 4.6 g/dL (3.5-5.0); Alkaline Phosphatase 101 U/L (38-126); Anion Gap 12 mmol/L; Blood Urea Nitrogen 10 mg/dL (9-20); Calcium 9.1 mg/dL (8.4-10.2); Carbon Dioxide 25 mmol/L (22-30); Chloride 108 mmol/L (98-107); Creatine Kinase 358 U/L (55-170); Glucose 96 mg/dL (74-99); Lipase 123 U/L (23-300); Non-African American GFR(CKD) >90 (>60 ml/min/1.73 sqM); Sodium 145 mmol/L (137-145); Total Bilirubin 0.4 mg/dL (0.2-1.3); Total Protein 7.4 g/dL (6.3-8.2)
[2024-11-15 00:11] LABS: INR 0.8 (<1.2); Partial Thromboplastin Time 26.1 sec (22.0-30.0); Prothrombin Time 9.6 sec (10.0-12.5)
[2024-11-15 00:51] LABS: Alcohol 298 mg/dL
[2024-11-15] MEDS: LORazepam 2 MG/ML INJ IV STA (01:09)
[2024-11-15] MEDS: SODIUM CHLORIDE 0.9% 1,000 ML IV STA (01:11)
[2024-11-15] MEDS ORDERED: ACETAMINOPHEN TAB 325 MG TAB PO PRN (01:25)
[2024-11-15] MEDS ORDERED: NALOXONE 0.4 MG/ML 1 ML VIAL IV PRN (01:25)
[2024-11-15] MEDS ORDERED: LORazepam 0.5 MG TAB PO PRN (01:29)
[2024-11-15] MEDS ORDERED: LORazepam 1 MG TAB PO PRN ×4 (01:29)
[2024-11-15] MEDS ORDERED: LORazepam 2 MG/ML INJ IV PRN ×3 (01:29)
[2024-11-15] MEDS: SODIUM CHLORIDE 0.9% 1,000 ML IV SCH (02:01)
[2024-11-15 08:38] VITALS: BP 105/59; PULSE 82; RESP 15; TEMP 97.8
--- NOTE | 2024-11-15 20:48 | P.HPIM ---
History of Present Illness H&P Date: 11/15/24 This is a 39-year-old male with medical history significant for hypertension, chronic alcoholism and autoimmune disease. Patient has also history of anxiety depression PTSD he is a never smoker does report heavy alcohol use. He came into the hospital secondary to acute alcohol intoxication with a blood alcohol level found to be 298. He also had an elevated lactic acid at 2.2. Patient was just discharged 2 days ago after being admitted for alcohol withdrawal seizures. Patient was discharged on oral librium taper 2 days prior. Patient's girlfriend reported he has been in and out of it for about 5 hours had an episode was as low back into his head. Patient is also complaining complaining of bilateral leg pain elderly when he took a warm shower he has no known fall or injury to t he head. His last drink was about 40 minutes prior to arrival to the ER. He had a brain CT completed that reveals no acute intracranial process. Patient was admitted to the hospital and started on IV Ativan CIWA protocol he became extremely agitated and ripped out his IV per the nursing staff. Once he was brought to the medical floor he stated that he was leaving as he could not get IV Ativan although he did rip out his IV prior to. He left AGAINST MEDICAL ADVICE. All the medical history is taken from the chart as the patient was not evaluated by admitting services before patient decided to leave AGAINST MEDICAL ADVICE. Did not complete review of systems or physical examination as patient left AMA before being evaluated by admitting service Assessment Acute alcohol intoxication with concerns of acute delirium tremens Alcohol withdrawal seizures, with history of, History of hypertension History of significant PTSD Anxiety/depression history Continued ongoing nicotine abuse Autoimmune disease per patient, maintained on daily steroid The impression and plan of care has been dictated by Emilia Arciniega Nurse Practitioner as directed. Dr. Kory MD I have performed a history and physical examination and medical decision making of this patient, discussed the same with the dictator, and agree with the dictators assessment and plan as written, documented as a scribe. Based on total visit time, I have performed more than 50% of this visit. 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, right eye surgery, right wrist surgery Past Anesthesia/Blood Transfusion Reactions: No Reported Reaction Past Psychological History: Anxiety, Depression, PTSD Smoking Status: Never smoker Past Alcohol Use History: Daily, Heavy Past Drug Use History: None Reported - Past Family History Father Additional Family Medical History / Comment(s): psoriasis Mother Family Medical History: Thyroid Disorder Sister(s) Family Medical History: Diabetes Mellitus Medications and Allergies Home Medications Medication Instructions Recorded Confirmed Type Losartan [Cozaar] 25 mg PO DAILY 30 Days #30 tab 08/28/24 11/15/24 Rx Cholecalciferol (Vitamin D3) 50 mcg PO DAILY 11/11/24 11/15/24 History [Vitamin D3 (50 Mcg = 2000 Iu) Chew Tab] EPINEPHrine (Auto Inject) [Epipen] 0.3 mg IM ONCE PRN 11/11/24 11/15/24 History hydrOXYzine pamoate [Vistaril] 25 mg PO QID PRN 11/11/24 11/15/24 History Folic Acid 1 mg PO DAILY #30 tab 11/12/24 11/15/24 Rx Thiamine [Vitamin B-1] 100 mg PO DAILY #30 tablet 11/12/24 11/15/24 Rx Multivitamins, Thera [Multivitamin 1 tab PO DAILY 11/15/24 11/15/24 History (formulary)] chlordiazePOXIDE HCl [Librium] See Taper PO QID 11/15/24 11/15/24 History Allergies Allergy/AdvReac Type Severity Reaction Status Date / Time bee pollen Allergy Anaphylaxis Verified 11/15/24 09:14 bee venom protein (honey bee) Allergy Anaphylaxis Verified 11/15/24 09:14 Physical Exam Vitals: Vital Signs Temp Pulse Resp BP Pulse Ox 11/15/24 08:36 97.8 F 82 15 105/59 97 11/15/24 07:45 97.9 F 92 16 105/72 97 11/15/24 06:52 77 16 124/78 96 11/15/24 05:34 81 16 117/79 95 11/15/24 04:35 80 16 119/83 98 11/15/24 02:57 89 16 118/83 95 11/15/24 00:45 97.8 F 87 16 122/77 95 11/14/24 23:51 108 H 16 128/80 95 11/14/24 22:54 98.4 F 95 16 148/99 97 Results CBC & Chem 7: 11/14/24 23:34 11/14/24 23:33 Labs: Abnormal Lab Results - Last 24 Hours (Table) 11/14/24 11/14/24 11/14/24 Range/Units 23:33 23:33 23:33 PT 9.6 L (10.0-12.5) sec Chloride 108 H (98-107) mmol/L Plasma Lactic Acid Eldon 2.2 H* (0.7-2.0) mmol/L Creatine Kinase 358 H (55-170) U/L Serum Alcohol 298 H* mg/dL
--- NOTE | 2024-11-15 20:49 | P.DS ---
Providers Date of admission: 11/15/24 01:30 Attending physician: Thor Bruno Primary care physician: Stated None Hospital Course: This is a 39-year-old male with medical history significant for hypertension, chronic alcoholism and autoimmune disease. Patient has also history of anxiety depression PTSD he is a never smoker does report heavy alcohol use. He came into the hospital secondary to acute alcohol intoxication with a blood alcohol level found to be 298. He also had an elevated lactic acid at 2.2. Patient was just discharged 2 days ago after being admitted for alcohol withdrawal seizures. Patient was discharged on oral librium taper 2 days prior. Patient's girlfriend reported he has been in and out of it for about 5 hours had an episode was as low back into his head. Patient is also complaining complaining of bilateral leg pain elderly when he took a warm shower he has no known fall or injury to the head. His last drink was about 40 minutes prior to arrival to the ER. He had a brain CT completed that reveals no acute intracranial process. Patient was admitted to the hospital and started on IV Ativan CIWA protocol he became extremely agitated and ripped out his IV per the nursing staff. Once he was brought to the medical floor he stated that he was leaving as he could not get IV Ativan although he did rip out his IV prior to. He left AGAINST MEDICAL ADVICE. All the medical history is taken from the chart as the patient was not evaluated by admitting services before patient decided to leave AGAINST MEDICAL ADVICE. Did not complete review of systems or physical examination as patient left AMA before being evaluated by admitting service Assessment Acute alcohol intoxication with concerns of acute delirium tremens Alcohol withdrawal seizures, with history of, History of hypertension History of significant PTSD Anxiety/depression history Continued ongoing nicotine abuse Autoimmune disease per patient, maintained on daily steroid The impression and plan of care has been dictated by Emilia Arciniega Nurse Practitioner as directed. Dr. Kory MD I have performed a history and physical examination and medical decision making of this patient, discussed the same with the dictator, and agree with the dictators assessment and plan as written, documented as a scribe. Based on total visit time, I have performed more than 50% of this visit. Plan - Discharge Summary New Discharge Prescriptions: No Action hydrOXYzine pamoate [Vistaril] 25 mg PO QID PRN PRN Reason: Anxiety EPINEPHrine (Auto Inject) [Epipen] 0.3 mg IM ONCE PRN PRN Reason: Anaphylaxis Cholecalciferol (Vitamin D3) [Vitamin D3 (50 Mcg = 2000 Iu) Chew Tab] 50 mcg PO DAILY Thiamine [Vitamin B-1] 100 mg PO DAILY #30 tablet chlordiazePOXIDE HCl [Librium] See Taper PO QID Losartan [Cozaar] 25 mg PO DAILY 30 Days #30 tab Folic Acid 1 mg PO DAILY #30 tab Multivitamins, Thera [Multivitamin (formulary)] 1 tab PO DAILY Discharge Medication List Losartan [Cozaar] 25 mg PO DAILY 30 Days #30 tab 08/28/24 [Rx] Cholecalciferol (Vitamin D3) [Vitamin D3 (50 Mcg = 2000 Iu) Chew Tab] 50 mcg PO DAILY 11/11/24 [History] EPINEPHrine (Auto Inject) [Epipen] 0.3 mg IM ONCE PRN 11/11/24 [History] hydrOXYzine pamoate [Vistaril] 25 mg PO QID PRN 11/11/24 [History] Folic Acid 1 mg PO DAILY #30 tab 11/12/24 [Rx] Thiamine [Vitamin B-1] 100 mg PO DAILY #30 tablet 11/12/24 [Rx] Multivitamins, Thera [Multivitamin (formulary)] 1 tab PO DAILY 11/15/24 [History] chlordiazePOXIDE HCl [Librium] See Taper PO QID 11/15/24 [History] Follow up Appointment(s)/Referral(s): None,Stated [Primary Care Provider] - 1-2 days Discharge Disposition: LEFT AGAINST MEDICAL ADVICE
[2024-11-16] MEDS ORDERED: THIAMINE 100 MG TAB PO SCH (09:00)
== END 2024-11-15 10:01 | disposition left against medical advice (07) ==
LOC: EC 22:51 → 6NMEDSUR 11-15 01:30 → 5NMEDONC 11-15 07:02
PROVIDERS: ADMIT Hospitalist; ATTEND Hospitalist
DX: F10.229 Alcohol dependence with intoxication, unspecified (principal); Y90.8 Blood alcohol level of 240 mg/100 ml or more; F41.9 Anxiety disorder, unspecified; F32.A Depression, unspecified; F43.10 Post-traumatic stress disorder, unspecified; I10 Essential (primary) hypertension; M35.9 Systemic involvement of connective tissue, unspecified; Z53.29 Procedure and treatment not carried out because of patient's decision for other reasons; Z79.52 Long term (current) use of systemic steroids; Z79.899 Other long term (current) drug therapy
CPT/HCPCS: 96361; 96374; 99285; 36415 ×2; 93005; 80053; 82550; 83605 ×2; 83690; 85025; 85610; 85730; 80320; 70450; G0378 ×2; J2060

== ENCOUNTER 2024-11-19 13:46 | Observation (INO) | payer OTHER ==
--- NOTE | 2024-11-19 14:58 | ED ---
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 Patient typically drinks half of a half a gallon per day. Patient has been trying to cut back on his drinking. Mother reports patient had "sips" this morning. Mother reports he had seizure activity prior to arrival. (Bharati Moscoso) This is a 39-year-old male with 20-year history of EtOH abuse and withdrawal seizures presenting with girlfriend for seizure attributed to alcohol withdrawal today. Girlfriend states patient normally drinks about a quart a gallon of liquor per day. Endorses having a tonic-clonic seizure due to attempts of quitt ing alcohol. Girlfriend states patient wants to be admitted for assistance to quit alcohol use. Girlfriend states patient also had a seizure last night patient denies SI/HI urine patient endorses tremors, right hand pain, right foot pain, spinal pain, especially coccyx, left shoulder pain. (Peter Benson) - Related Data Home Medications Medication Instructions Recorded Confirmed Cholecalciferol (Vitamin D3) 50 mcg PO DAILY 11/11/24 11/15/24 [Vitamin D3 (50 Mcg = 2000 Iu) Chew Tab] EPINEPHrine (Auto Inject) [Epipen] 0.3 mg IM ONCE PRN 11/11/24 11/15/24 hydrOXYzine pamoate [Vistaril] 25 mg PO QID PRN 11/11/24 11/15/24 Multivitamins, Thera [Multivitamin 1 tab PO DAILY 11/15/24 11/15/24 (formulary)] chlordiazePOXIDE HCl [Librium] See Taper PO QID 11/15/24 11/15/24 Previous Rx's Medication Instructions Recorded Losartan [Cozaar] 25 mg PO DAILY 30 Days #30 tab 08/28/24 Folic Acid 1 mg PO DAILY #30 tab 11/12/24 Thiamine [Vitamin B-1] 100 mg PO DAILY #30 tablet 11/12/24 Allergies Allergy/AdvReac Type Severity Reaction Status Date / Time bee pollen Allergy Anaphylaxis Verified 11/15/24 09:14 bee venom protein (honey bee) Allergy Anaphylaxis Verified 11/15/24 09:14 Review of Systems ROS Other: All systems not noted in ROS Statement are negative. <Bharati Moscoso - Last Filed: 11/19/24 14:57> ROS Other: All systems not noted in ROS Statement are negative. <Peter Benson - Last Filed: 11/20/24 04:12> ROS Statement: Those systems with pertinent positive or pertinent negative responses have been documented in the HPI. 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, right eye surgery, right wrist surgery Past Anesthesia/Blood Transfusion Reactions: No Reported Reaction Past Psychological History: Anxiety, Depression, PTSD Smoking Status: Never smoker Past Alcohol Use History: Daily, Heavy Past Drug Use History: None Reported - Past Family History Father Additional Family Medical History / Comment(s): psoriasis Mother Family Medical History: Thyroid Disorder Sister(s) Family Medical History: Diabetes Mellitus <Bharati Moscoso - Last Filed: 11/19/24 14:57> General Exam Limitations: no limitations <Bharati Moscoso - Last Filed: 11/19/24 14:57> Limitations: altered mental status General appearance: appears intoxicated (, Patient lying facedown on bed, responsive to verbal) Head exam: Present: atraumatic, normocephalic, normal inspection Eye exam: Present: normal appearance, PERRL, EOMI. Absent: scleral icterus, conjunctival injection, periorbital swelling ENT exam: Present: normal exam, mucous membranes moist Neck exam: Present: normal inspection. Absent: tenderness, meningismus, lymphadenopathy Respiratory exam: Present: normal lung sounds bilaterally. Absent: respiratory distress, wheezes, rales, rhonchi, stridor Cardiovascular Exam: Present: regular rate, normal rhythm, normal heart sounds. Absent: systolic murmur, diastolic murmur, rubs, gallop, clicks GI/Abdominal exam: Present: soft, tenderness (RUQ tenderness with guarding), guarding, normal bowel sounds. Absent: distended, rebound, rigid Extremities exam: Present: normal inspection, full ROM, tenderness (Positive right hand and right foot tenderness without obvious ecchymosis, edema, crepitus, deformity. Neurovascular motor function intact.), normal capillary refill. Absent: pedal edema, joint swelling, calf tenderness Back exam: Present: normal inspection, vertebral tenderness (Positive diffuse spinal tenderness especially thoracic and sacrococcyx region.) Neurological exam: Present: alert, oriented X3, CN II-XII intact Psychiatric exam: Present: depressed, agitated, flat affect Skin exam: Present: warm, dry, intact, normal color. Absent: rash <Peter Benson - Last Filed: 11/20/24 04:12> - General Exam Comments Initial Comments: Visual Physical Exam Vital signs reviewed General: Well-appearing, nontoxic, no acute distress. Head: Normocephalic, atraumatic Eyes: PERRLA, EOMI ENT: Airway patent Chest: Nonlabored breathing Skin: No visual rash, normal skin tone Neuro: Alert and oriented 3 Musculoskeletal: No gross abnormalities (ZechariahihaBharati) Course Vital Signs 11/19/24 11/19/24 11/19/24 14:14 18:45 21:10 Temperature 97.8 F Pulse Rate 86 78 68 Pulse Rate [ Right Sitting Pulse Oximetery ] Respiratory 16 16 16 Rate Blood Pressure 199/117 142/89 140/98 Blood Pressure [Right Arm Sitting] O2 Sat by Pulse 98 99 98 Oximetry 11/19/24 11/19/24 11/19/24 22:00 22:08 22:27 Temperature 98.2 F Pulse Rate 70 Pulse Rate [ 77 Right Sitting Pulse Oximetery ] Respiratory 17 18 18 Rate Blood Pressure 149/111 Blood Pressure 149/111 [Right Arm Sitting] O2 Sat by Pulse 98 96 Oximetry 11/20/24 01:58 Temperature 98.5 F Pulse Rate Pulse Rate [ 65 Right Sitting Pulse Oximetery ] Respiratory 18 Rate Blood Pressure Blood Pressure 138/102 [Right Arm Sitting] O2 Sat by Pulse 98 Oximetry Medical Decision Making <Bharati Moscoso - Last Filed: 11/19/24 14:57> - Lab Data Result diagrams: 11/19/24 15:12 11/19/24 15:12 <Peter Benson - Last Filed: 11/20/24 04:12> - Medical Decision Making I performed the quick note portion of this chart. Electronically signed by Bharati Moscoso PA-C (Bharati Moscoso) Was pt. sent in by a medical professional or institution ([facility], urgent care, hospital, or [facility]...) When possible be specific @ -No Did you speak to anyone other than the patient for history (EMS, parent, family, police, friend...)? What history was obtained from this source @ -No Did you review nursing and triage notes (agree or disagree)? Why? @ -I reviewed and agree with nursing and triage notes Were old charts reviewed (outside hosp., previous admission, EMS record, old EKG, old radiological studies, urgent care reports/EKG's, [facility] records)? Report findings @ -Reviewed prior charts of ER visits from 11/10/2024 and 11/15/2024. Differential Diagnosis (chest pain, altered mental status, abdominal pain women, abdominal pain men, vaginal bleeding, weakness, fever, dyspnea, syncope, headache, dizziness, GI bleed, back pain, seizure, CVA, palpatations, mental health, musculoskeletal)? @ -Differential Seizure: Recurrent seizure disorder, febrile seizure, alcohol withdrawal, stimulants, meningitis, encephalitis, intercranial hemorrhage, intracranial tumor, stroke, eclampsia, thyrotoxicosis, hypocalcemia, hyponatremia, hypernatremia, hypomagnesemia, psychogenic, this is not meant to be an all-inclusive list. EKG interpreted by me (3pts min.). @ - Sinus rhythm without ST changes or T wave inversion. Ventricular rate 70 bpm, ROBER 137 ms, QRS duration 90 ms, QTc 399 ms. X-rays interpreted by me (1pt min.). @ - X-rays of spine, right foot, right hand and chest unremarkable. Left scapula x-ray shows possible fracture. CT interpreted by me (1pt min.). @ -Scapula CT shows Bankart lesion. U/S interpreted by me (1pt. min.). @ -None done What testing was considered but not performed or refused? (CT, X-rays, U/S, labs)? Why? @ -None What meds were considered but not given or refused? Why? @ -None Did you discuss the management of the patient with other professionals (professionals i.e. DrAlbna, PA, [facility], lab, RT, psych nurse, outreach and education social worker, qc lab technician, teacher, senior compliance officer, porter sample case)? Give summary @ -Spoke to Dr. Camilo from [facility] who agreed to patient admission. Was smoking cessation discussed for >3mins.? @ -No Was critical care preformed (if so, how long)? @ -No Were there social determinants of health that impacted care today? How? (Homelessness, low income, unemployed, alcoholism, drug addiction, transportation, low edu. Level, literacy, decrease access to med. care, [facility], rehab)? @ -No Was there de-escalation of care discussed even if they declined (Discuss DNR or withdrawal of care, Hospice)? DNR status @ -No What co-morbidities impacted this encounter? (DM, HTN, Smoking, COPD, CAD, Cancer, CVA, ARF, Chemo, Hep., AIDS, mental health diagnosis, sleep apnea, morbid obesity)? @ -EtOH abuse Was patient admitted / discharged? Hospital course, mention meds given and ro heather, prescriptions, significant lab abnormalities, going to OR and other pertinent info. @ -Lab work is unremarkable including phosphorus, magnesium, troponin, amylase/lipase. Toxicology positive for benzo and alcohol (241). X-rays of spine, right foot, right hand and chest unremarkable. Left scapula x-ray shows possible fracture. Scapula CT shows Bankart lesion. Spoke to Dr. Camilo from [facility] who agreed to patient admission. Undiagnosed new problem with uncertain prognosis? @ -No Drug Therapy requiring intensive monitoring for toxicity (Heparin, Nitro, Insulin, Cardizem)? @ -No Were any procedures done? @ -No Diagnosis/symptom? @ -Alcohol withdrawal induced seizure Acute, or Chronic, or Acute on Chronic? @ -Acute Uncomplicated (without systemic symptoms) or Complicated (systemic symptoms)? @ -Complicated Side effects of treatment? @ -No Exacerbation, Progression, or Severe Exacerbation? @ -No Poses a threat to life or bodily function? How? (Chest pain, USA, HI, pneumonia, PE, COPD, DKA, ARF, appy, cholecystitis, CVA, Diverticulitis, Homicidal, Suicidal, threat to staff... and all critical care pts) @ -Seizure due to alcohol withdrawal (Peter Benson) - Lab Data Lab Results 11/19/24 11/19/24 11/19/24 Range/Units 15:12 15:12 16:54 WBC 5.4 (3.8-10.6) k/uL RBC 4.87 (4.30-5.90) m/uL Hgb 15.8 (13.0-17.5) gm/dL Hct 46.8 (39.0-53.0) % MCV 96.1 (80.0-100.0) fL MCH 32.5 (25.0-35.0) pg MCHC 33.8 (31.0-37.0) g/dL RDW 13.5 (11.5-15.5) % Plt Count 287 (150-450) k/uL MPV 7.2 Neutrophils % 56 % Lymphocytes % 29 % Monocytes % 9 % Eosinophils % 3 % Basophils % 1 % Neutrophils # 3.0 (1.3-7.7) k/uL Lymphocytes # 1.6 (1.0-4.8) k/uL Monocytes # 0.5 (0-1.0) k/uL Eosinophils # 0.2 (0-0.7) k/uL Basophils # 0.1 (0-0.2) k/uL PT 10.7 (10.0-12.5) sec INR 1.0 (<1.2) Sodium 143 (137-145) mmol/L Potassium 4.2 (3.5-5.1) mmol/L Chloride 106 (98-107) mmol/L Carbon Dioxide 30 (22-30) mmol/L Anion Gap 7 mmol/L BUN 10 (9-20) mg/dL Creatinine 0.69 (0.66-1.25) mg/dL Est GFR (CKD-EPI)AfAm >90 (>60 ml/min/1.73 sqM) Est GFR (CKD-EPI)NonAf >90 (>60 ml/min/1.73 sqM) Glucose 102 H (74-99) mg/dL Calcium 9.3 (8.4-10.2) mg/dL Phosphorus (2.5-4.5) mg/dL Magnesium (1.6-2.3) mg/dL Total Bilirubin 0.6 (0.2-1.3) mg/dL AST 45 (17-59) U/L ALT 26 (4-49) U/L Alkaline Phosphatase 85 (38-126) U/L Troponin I (0.000-0.034) ng/mL Total Protein 8.0 (6.3-8.2) g/dL Albumin 4.8 (3.5-5.0) g/dL Amylase (30-110) U/L Lipase (23-300) U/L Serum Alcohol 241 H* mg/dL 11/19/24 11/19/24 Range/Units 16:54 16:54 WBC (3.8-10.6) k/uL RBC (4.30-5.90) m/uL Hgb (13.0-17.5) gm/dL Hct (39.0-53.0) % MCV (80.0-100.0) fL MCH (25.0-35.0) pg MCHC (31.0-37.0) g/dL RDW (11.5-15.5) % Plt Count (150-450) k/uL MPV Neutrophils % % Lymphocytes % % Monocytes % % Eosinophils % % Basophils % % Neutrophils # (1.3-7.7) k/uL Lymphocytes # (1.0-4.8) k/uL Monocytes # (0-1.0) k/uL Eosinophils # (0-0.7) k/uL Basophils # (0-0.2) k/uL PT (10.0-12.5) sec INR (<1.2) Sodium (137-145) mmol/L Potassium (3.5-5.1) mmol/L Chloride (98-107) mmol/L Carbon Dioxide (22-30) mmol/L Anion Gap mmol/L BUN (9-20) mg/dL Creatinine (0.66-1.25) mg/dL Est GFR (CKD-EPI)AfAm (>60 ml/min/1.73 sqM) Est GFR (CKD-EPI)NonAf (>60 ml/min/1.73 sqM) Glucose (74-99) mg/dL Calcium (8.4-10.2) mg/dL Phosphorus 3.3 (2.5-4.5) mg/dL Magnesium 2.1 (1.6-2.3) mg/dL Total Bilirubin (0.2-1.3) mg/dL AST (17-59) U/L ALT (4-49) U/L Alkaline Phosphatase (38-126) U/L Troponin I <0.012 (0.000-0.034) ng/mL Total Protein (6.3-8.2) g/dL Albumin (3.5-5.0) g/dL Amylase 54 (30-110) U/L Lipase 110 (23-300) U/L Serum Alcohol mg/dL Disposition <Bharati Moscoso - Last Filed: 11/19/24 14:57> Is patient prescribed a controlled substance at d/c from ED?: No Time of Disposition: 15:15 Decision Date: 11/19/24 Decision Time: 15:15 <Peter Benson - Last Filed: 11/20/24 04:12> Clinical Impression: Alcohol withdrawal seizure Disposition: ADMITTED IP TO THIS HOSP Condition: Good
[2024-11-19 15:27] LABS: Basophils # (A) 0.1 k/uL (0-0.2); Basophils % (A) 1 %; Eosinophils # (A) 0.2 k/uL (0-0.7); Eosinophils % (A) 3 %; HCT 46.8 % (39.0-53.0); HGB 15.8 gm/dL (13.0-17.5); Lymphocytes # (A) 1.6 k/uL (1.0-4.8); Lymphocytes % (A) 29 %; MCH 32.5 pg (25.0-35.0); MCHC 33.8 g/dL (31.0-37.0); MCV 96.1 fL (80.0-100.0); Mean Platelet Volume 7.2; Monocytes # (A) 0.5 k/uL (0-1.0); Monocytes % (A) 9 %; Neutrophils % (A) 56 %; Platelet Count 287 k/uL (150-450); RBC 4.87 m/uL (4.30-5.90); RDW 13.5 % (11.5-15.5); WBC 5.4 k/uL (3.8-10.6)
[2024-11-19 15:30] LABS: ALT 26 U/L (4-49); AST 45 U/L (17-59); African American GFR (CKD) >90 (>60 ml/min/1.73 sqM); Albumin 4.8 g/dL (3.5-5.0); Alkaline Phosphatase 85 U/L (38-126); Anion Gap 7 mmol/L; Blood Urea Nitrogen 10 mg/dL (9-20); Calcium 9.3 mg/dL (8.4-10.2); Carbon Dioxide 30 mmol/L (22-30); Chloride 106 mmol/L (98-107); Glucose 102 mg/dL (74-99); Non-African American GFR(CKD) >90 (>60 ml/min/1.73 sqM); Potassium 4.2 mmol/L (3.5-5.1); Sodium 143 mmol/L (137-145); Total Bilirubin 0.6 mg/dL (0.2-1.3)
[2024-11-19 15:34] LABS: Alcohol 241 mg/dL
[2024-11-19] MEDS: LORazepam 2 MG/ML INJ IV STA (16:58)
[2024-11-19 17:21] LABS: Prothrombin Time 10.7 sec (10.0-12.5)
[2024-11-19 17:23] LABS: Magnesium 2.1 mg/dL (1.6-2.3); Phosphorus 3.3 mg/dL (2.5-4.5)
--- NOTE | 2024-11-19 17:25 | XR ---
EXAMINATION TYPE: XR hand limited RT DATE OF EXAM: 11/19/2024 5:19 PM COMPARISON: None. CLINICAL INDICATION: Male, 39 years old with history of Pain/crepitus, pain TECHNIQUE: XR hand limited RT XX views were obtained. FINDINGS: There is no acute fracture/dislocation evident. The joint spaces appear within normal limits. The ov erlying soft tissue appears unremarkable. IMPRESSION: No acute fracture or dislocation. [facility], , 11/19/2024 5:23 PM
--- NOTE | 2024-11-19 17:26 | XR ---
EXAMINATION TYPE: XR foot limited RT DATE OF EXAM: 11/19/2024 5:19 PM COMPARISON: None. CLINICAL INDICATION: Male, 39 years old with history of Pain/crepitus, pain TECHNIQUE: XR foot limited RT XX views were obtained. FINDINGS: There is no acute fracture/dislocation evident. The joint spaces appear within normal limits. The o verlying soft tissue appears unremarkable. IMPRESSION: No acute fracture or dislocation. [facility], , 11/19/2024 5:23 PM
--- NOTE | 2024-11-19 17:37 | XR ---
EXAMINATION TYPE: XR spine complete AP and Lat DATE OF EXAM: 11/19/2024 5:29 PM COMPARISON: None. 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 FINDINGS: The cervical spine is visualized in its entirety from C1 thru the top of T1 level. It is s atisfactory in alignment without evidence of acute fracture or dislocation. The pre-vertebral soft t issue appears within normal limits. The C1-C2 articulation is unremarkable on the open mouth view. Disc spaces are well preserved. IMPRESSION: No acute fracture or dislocation is seen in the cervical spine. Disc spaces are well pre served. THORACIC SPINE 2 VIEWS. TECHNIQUE: Frontal, lateral, and swimmer's view of thoracic spine are obtained. COMPARISON: None. FINDINGS: Thoracic spine show satisfactory alignment without evidence of acute fracture or dislocatio n. Vertebral body heights are preserved. Disc spaces are well preserved. Visualized ribs are unre markable. IMPRESSION: No acute fracture or dislocation is seen in the thoracic spine. Disc spaces are well pres erved. LUMBAR SPINE X-RAY: TECHNIQUE: Three views of the lumbar spine are submitted. COMPARISON: None. FINDINGS: There are 5 lumbar type vertebral bodies identified. The lumbar spine shows satisfactory alignment without evidence of acute fracture or dislocation. Vertebral body heights are within normal limits. Moderate degenerative narrowing at L5-S1. Ventral spondylosis. The overlying soft tissue nina ears unremarkable. IMPRESSION: No acute fracture or dislocation is seen in the lumbar spine. Disc spaces are well pres erved.ICD 10 NO FRACTURE, INITIAL EVALUATION [facility], , 11/19/2024 5:35 PM
--- NOTE | 2024-11-19 17:41 | XR ---
EXAMINATION TYPE: XR chest 1V portable DATE OF EXAM: 11/19/2024 5:29 PM COMPARISON: 11/29/2022 CLINICAL INDICATION: Male, 39 years old with history of Transient chest pain, TECHNIQUE: Single frontal view of the chest is obtained. FINDINGS: There is no focal air space opacity, pleural effusion, or pneumothorax seen. The cardiac silhouette size is within normal limits. The osseous structures are intact. IMPRESSION: No acute process. [facility], , 11/19/2024 5:39 PM
--- NOTE | 2024-11-19 17:59 | XR ---
EXAMINATION TYPE: XR scapula LT DATE OF EXAM: 11/19/2024 5:19 PM COMPARISON: None. CLINICAL INDICATION: Male, 39 years old with history of Pain/TTP, pain TECHNIQUE: 2 views of the left scapula are submitted. FINDINGS: There is bony fragment seen on one of the views submitted site of origin is indeterminate h owever could reflect bony fragment from the posterior greater tuberosity of the proximal humerus. 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 IMPRESSION: As above [facility], , 11/19/2024 5:56 PM
--- NOTE | 2024-11-19 19:20 | CT ---
EXAMINATION TYPE: CT scapula LT wo con CT DLP: 463.6 mGycm, Automated exposure control for dose reduction was used. DATE OF EXAM: 11/19/2024 6:56 PM COMPARISON: . Extremity radiograph same day. CLINICAL INDICATION:Male, 39 years old with history of Bony fragment on x-ray, crepitus; PHH, Bony fr agment on x-ray, crepitus TECHNIQUE: Axial images were obtained of the CT scapula LT wo con, Additional coronal and sagittal re formatted images and soft tissue and bone window were obtained for review. 3-D reconstruction was cre ated on a separate workstation. Contrast used: mL of , (None if empty) Oral contrast used: (None if empty) FINDINGS: There is cortical irregularity involving the inferior glenoid with a loose ossific fragment seen along the posterior proximal humerus. There is normal anatomic articulation of the humeral head with the glenoid fossa. No additional fractures are seen. The visualized portion of the thorax is wi thin normal limits. No significant soft tissue abnormality is appreciated. 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 No dislocation at this time. [facility], , 11/19/2024 7:17 PM
[2024-11-19] MEDS ORDERED: LORazepam 1 MG TAB PO PRN (21:38)
[2024-11-19] MEDS ORDERED: LORazepam 2 MG/ML INJ IV PRN ×3 (21:38)
[2024-11-19] MEDS ORDERED: hydrOXYzine pamoate 25 MG CAP PO PRN (21:39)
[2024-11-19] MEDS ORDERED: NALOXONE 0.4 MG/ML 1 ML VIAL IV PRN (21:40)
[2024-11-20 00:34] LABS: Amphetamine Screen,Urine Not Detected (NotDetected); Cocaine Screen,Urine Not Detected (NotDetected); Opiate Screen,Urine Not Detected (NotDetected); Phencyclidine Screen,Urine Not Detected (NotDetected); Urn Cannabinoid Scrn Not Detected (NotDetected)
[2024-11-20 00:35] LABS: Barbiturate Screen,Urine Not Detected (NotDetected); Benzodiazepines Screen,Urine Detected (NotDetected); Methadone Screen, Urine Not Detected (NotDetected); Oxycodone Screen, Urine Not Detected (NotDetected); Tricyclic Antidepressant,Urine Not Detected (NotDetected)
--- NOTE | 2024-11-20 00:44 | P.HPIM ---
History of Present Illness H&P Date: 11/19/24 Chief Complaint: Alcohol withdrawal seizures Patient is a 39-year-old male with past medical history of alcohol abuse, hypertension, autoimmune disease, anxiety, depression, PTSD presented to the emergency department with for evaluation of alcohol withdrawal and seizures. P hailey reports drinking 1/5 and half per day for the past 20 years of hard liquor. Reports his last drink was this morning. Patient has had previous history of alcohol withdrawal and had to be admitted to the hospital for seizures induced by alcohol withdrawal. This time patient had a alcohol withd evelyn seizure yesterday and 2 additional episodes earlier tonight. Patient denies any history of seizure disorder and does not take any antiseizure medications at home. The patient notes that he is actively trying to get sober. Patient currently endorses agitation and anxiety. Denies fever, chills, chest pain, shortness of breath, nausea or vomiting, numbness or tingling sensation in upper or lower extremity, urinary or bowel incontinence. ED documentation reviewed. In the ED patient was treated with Ativan 1 mg IV x 1 Vitals on admission temperature 98.2, pulse rate 77, respiratory rate 18, blood pressure 149/111, O2 saturation of 96% on room air EKG independently interpreted as sinus rhythm with ventricular rate of 78 bpm, QTc of 399 ms. CXR shows no acute process. Spine x-ray shows no acute fracture or dislocation seen in the cervical spine. No acute fracture or dislocation seen in the thoracic spine. No fracture or dislocation seen in the lumbar spine. Scapular x-ray shows there is a bony fragment seen on one of the views, site of origin is indeterminate, however could reflect a bony fragment from the posterior greater tuberosity of the proximal humerus. Consider CT for evaluation. Foot x-ray shows no acute fracture or dislocation. Hand x-ray shows no acute fracture or dislocation. CT of scapula shows findings concerning for a left inferior glenoid Bankart deformity with loose ossific fragment likely secondary to fracture involving the proximal humerus. No dislocation at this time. Labs on admission show WBC 5.4, hemoglobin 15.8, hematocrit 46.8, platelets 287, PT 10.7, INR 1.0, sodium 143, potassium 4.2, chloride 106, carbon dioxide 30, BUN 10, creatinine 0.69, glucose 102, troponin less than 0.012, serum alcohol 241 Review of systems: Pertinent positives and negatives as discussed in HPI, a complete review of systems was performed and all other systems are negative. 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, regular eye surgery, right wrist surgery FMH: Father has a history of psoriasis, mother has a history of thyroid disorder, sister has history of diabetes mellitus Allergies: Bee pollen, bee venom protein Social history: Tobacco: Never smoker Alcohol: Daily heavy drinker Recreational drugs: No previous drug use Travel: No recent travel history Sick contacts: No sick contacts Physical examination: Vital signs reviewed General: nontoxic, no distress, appears at stated age Derm: warm, dry, intact Head: atraumatic, normocephalic, symmetric Eyes: EOMI, anicteric sclera Mouth: no lip lesion, mucus membranes moist Cardiovascular: S1 S2 reg, no murmur Lungs: CTA bilateral, no rhonchi, no rales, no accessory muscle use Abdominal: soft, non-tender to palpation Extremities: No cyanosis, clubbing, or pedal edema. Neuro: Alert, Gross neurological examination did not reveal any focal deficits. Cranial nerves II to XII grossly intact. Intact bilateral upper and lower extremity muscle strength 5 out of 5 and sensation. Slightly outstretched hand tremor noted in the left hand Psych: well appearing, appropriate affect Assessment/Plan: 39-year-old male with past medical history of alcohol abuse, hypertension, autoimmune disease presented to the emergency department for evaluation of alcohol withdrawal and seizures. Patient will be admitted to inpatient medicine service. Active: #. Fracture involving the left proximal humerus CT of scapula shows findings concerning for a left inferior glenoid Bankart deformity with loose ossific fragment likely secondary to fracture involving the proximal humerus. No dislocation at this time. Pain control with as needed Tylenol Consult orthopedic surgery #. Alcohol withdrawal w/ seizure Continue CIWA protocol Cardiac monitoring Fall precautions, seizure precautions Continue thiamine 100 mg daily Continue lorazepam as needed Consult to social work Consider adding Librium 10 mg p.o. 4 times daily Chronic: #. Hypertension Continue with home losartan 25 mg daily #. Vitamin D deficiency Continue with home colecalciferol 50 mcg daily F: No restrictions E: Replete as needed N: Heart healthy diet A: Ambulatory DVT prophylaxis: Lovenox 40 mg subcu daily The patient is admitted with an anticipated less than 2 midnight stay for evaluation of alcohol withdrawal seizures CODE STATUS: Full code Discussed with: Patient Anticipated discharge place: Home Past Medical History Past Medical History: Hypertension Additional Past Medical History / Comment(s): ETOH abuse, autoimmune disease History of Any Multi-Drug Resistant Organisms: None Reported Past Surgical History: No Surgical Hx Reported Additional Past Surgical History / Comment(s): tumor removed from left forhead 3 yrs ago, right eye surgery, right wrist surgery Past Anesthesia/Blood Transfusion Reactions: No Reported Reaction Past Psychological History: Anxiety, Depression, PTSD Smoking Status: Never smoker Past Alcohol Use History: Daily, Heavy Past Drug Use History: None Reported - Past Family History Father Additional Family Medical History / Comment(s): psoriasis Mother Family Medical History: Thyroid Disorder Sister(s) Family Medical History: Diabetes Mellitus Medications and Allergies Home Medications Medication Instructions Recorded Confirmed Type Losartan [Cozaar] 25 mg PO DAILY 30 Days #30 tab 08/28/24 11/15/24 Rx Cholecalciferol (Vitamin D3) 50 mcg PO DAILY 11/11/24 11/15/24 History [Vitamin D3 (50 Mcg = 2000 Iu) Chew Tab] EPINEPHrine (Auto Inject) [Epipen] 0.3 mg IM ONCE PRN 11/11/24 11/15/24 History hydrOXYzine pamoate [Vistaril] 25 mg PO QID PRN 11/11/24 11/15/24 History Folic Acid 1 mg PO DAILY #30 tab 11/12/24 11/15/24 Rx Thiamine [Vitamin B-1] 100 mg PO DAILY #30 tablet 11/12/24 11/15/24 Rx Multivitamins, Thera [Multivitamin 1 tab PO DAILY 11/15/24 11/15/24 History (formulary)] chlordiazePOXIDE HCl [Librium] See Taper PO QID 11/15/24 11/15/24 History Allergies Allergy/AdvReac Type Severity Reaction Status Date / Time bee pollen Allergy Anaphylaxis Verified 11/15/24 09:14 bee venom protein (honey bee) Allergy Anaphylaxis Verified 11/15/24 09:14 Physical Exam Vitals: Vital Signs Temp Pulse Pulse Resp BP BP Pulse Ox 11/19/24 22:27 18 11/19/24 22:08 98.2 F 77 18 149/111 96 11/19/24 21:10 68 16 140/98 98 11/19/24 18:45 78 16 142/89 99 11/19/24 14:14 97.8 F 86 16 199/117 98 Intake and Output 11/19/24 11/19/24 11/19/24 06:59 14:59 22:59 Other: Voiding Method Urinal Weight 72.575 kg 72.575 kg Results CBC & Chem 7: 11/19/24 15:12 11/19/24 15:12 Labs: Abnormal Lab Results - Last 24 Hours (Table) 11/19/24 Range/Units 15:12 Glucose 102 H (74-99) mg/dL Serum Alcohol 241 H* mg/dL Thrombosis Risk Factor Assmnt - Choose All That Apply Any of the Below Risk Factors Present?: Yes Each Factor Represents 1 point: Age 41-60 years Other Risk Factors: No Other congenital or acquired thrombophilia - If yes, enter type in comment: No Thrombosis Risk Factor Assessment Total Risk Factor Score: 1 Thrombosis Risk Factor Assessment Level: Low Risk
[2024-11-20] MEDS ORDERED: ACETAMINOPHEN TAB 500 MG TAB PO PRN (01:12)
[2024-11-20] MEDS: CHOLECALCIFEROL 25 MCG (1000 IU) TABLET PO SCH (08:13)
[2024-11-20] MEDS: THIAMINE 100 MG TAB PO SCH (08:13)
[2024-11-20] MEDS: ENOXAPARIN 40 MG/0.4 ML SYRINGE SQ SCH (08:13)
[2024-11-20] MEDS: LOSARTAN 25 MG TAB PO SCH (08:13)
[2024-11-20] MEDS: LORazepam 1 MG TAB PO PRN ×2 (08:23→12:18)
[2024-11-20] MEDS: MULTIVITAMINS, THERA 1 EACH TAB PO SCH (10:19)
[2024-11-20] MEDS: FOLIC ACID 1 MG TAB PO SCH (10:19)
[2024-11-20 12:06] LABS: HCT 46.5 % (39.0-53.0); HGB 15.7 gm/dL (13.0-17.5); MCH 32.8 pg (25.0-35.0); MCHC 33.8 g/dL (31.0-37.0); MCV 97.1 fL (80.0-100.0); Mean Platelet Volume 7.7; Platelet Count 297 k/uL (150-450); RBC 4.78 m/uL (4.30-5.90); RDW 13.5 % (11.5-15.5); WBC 7.5 k/uL (3.8-10.6)
[2024-11-20 12:18] LABS: ALT 26 U/L (4-49); AST 43 U/L (17-59); African American GFR (CKD) >90 (>60 ml/min/1.73 sqM); Albumin 4.5 g/dL (3.5-5.0); Albumin/Globulin Ratio 1.5; Alkaline Phosphatase 97 U/L (38-126); Anion Gap 3 mmol/L; Blood Urea Nitrogen 12 mg/dL (9-20); Calcium 9.7 mg/dL (8.4-10.2); Carbon Dioxide 32 mmol/L (22-30); Chloride 100 mmol/L (98-107); Glucose 91 mg/dL (74-99); Magnesium 1.9 mg/dL (1.6-2.3); Non-African American GFR(CKD) >90 (>60 ml/min/1.73 sqM); Potassium 4.1 mmol/L (3.5-5.1); Sodium 135 mmol/L (137-145); Total Protein 7.5 g/dL (6.3-8.2)
--- NOTE | 2024-11-20 15:44 | P.PN ---
Subjective Progress Note Date: 11/20/24 Hospital course: Patient is a pleasant 39-year-old male with a past medical history of daily alcohol abuse drinking a 1.5 fifths of alcohol daily, previous alcohol withdrawal seizures, hypertension, autoimmune disorder, anxiety with depression, and PTSD. He presented to the emergency department on 11/19/2024 secondary to evaluation for alcohol withdraw and seizures. Patient reported trying to quit drinking on his own cutting back significantly. Upon arrival to our facility, patient underwent evaluation in the emergency department. Vital signs upon arri dennis show blood pressure 199/117, heart rate 86, respiratory rate 16, temp 97.8 F, and SpO2 of 98% on room air. EKG was completed showing normal sinus rhythm at 78 bpm with no significant T wave or ST abnormality showing no signs of acute ischemia upon personal review and interpretation. X-ray right hand completed negative for acute fracture or dislocation. For a right foot negative for acute fracture or dislocation. X-ray left scapula showing bony fragment seen on one of the views submitted site of origin is indeterminant but possibly originating from fragment of the posterior greater tuberosity of the proximal humerus recommending CT. Chest x-ray was completed negative for acute cardiopulmonary process. X-ray cervical, thoracic, and lumbar spine negative for acute fracture or dislocation. CT of scapula and left upper extremity was completed with reports of concerns for a left inferior glenoid Bankart deformity with loose ossific fragment likely secondary to fracture involving the proximal humerus, no dislocation reported at this time. Labs completed and reviewed. CBC was u nremarkable. Coagulation profile normal findings. BMP unremarkable. Blood glucose 102. Magnesium 2.1. Liver profile normal findings. Troponin was negative at less than 0.012. Amylase and lipase normal findings. Blood alcohol 241. Urine drug screen positive for benzodiazepines otherwise negative. Patient admitted under our services with consultation to orthopedic surgery. Physical exam: Vital signs reviewed and stable. General: Nontoxic, no distress and appears stated age. Derm: Skin warm and dry, normal coloration for ethnicity. Head: Atraumatic, normocephalic and symmetric. Eyes: EOM's intact, no lid lag, and anicteric sclera Mouth: no lip lesions, mucus membranes moist Cardiovascular: regular rate and rhythm with normal S1S2, no murmur, positive posterior tibial pulses bilaterally, and cap refill < 2 seconds. Lungs: Respirations even, regular, and unlabored on room air. Lungs CTA bilaterally, no rhonchi, no rales, no wheezing, and no accessory muscle usage. Abdominal: soft, nontender to palpation, no guarding, no appreciable organomegaly Ext: ROM intact. No gross muscle atrophy, no edema, no contractures Neuro: Speech clear, face symmetrical and CN II-XII grossly intact with no noted focal neuro deficits Psych: Alert and oriented to person, place, time, and situation. Appropriate and pleasant affect. Assessment and Plan of Care: Alcohol withdraw with complications Alcohol withdrawal seizures -Continue Librium 10 mg 4 times daily with close monitoring of CIWA scores and patient to be medicated with Ativan 0.5 mg every 4 hours as needed for CIWA score of 4-5, Ativan 1 mg every 4 hours for CIWA score of 6-7, Ativan 2 mg every 3 hours CIWA score of 8-9, and Ativan 2 mg every 2 hours forr CIWA score of 10 or greater. -Continuous IV hydration 0.9% normal saline at 100 cc/h. -Thiamine 100 mg daily, and Multivitamin daily, and Folate 1 mg daily -Seizure, fall, and aspiration precautions in place. -Urine drug screen positive for benzodiazepines otherwise negative. Blood alcohol was 241 upon arrival. -Continued close monitoring of electrolytes and replace as needed. -Telemetry monitoring. Hypertension -Monitor vital signs and continue daily medication regimen with losartan 25 mg daily. Anxiety with depression PTSD -Continue hydroxyzine 25 mg 4 times daily as needed for anxiety. Data and imaging reviewed: Vital signs reviewed. Blood pressure 163/116, heart rate 67, respiratory rate 18, temp 98.6 F, and SpO2 of 95% on room air. Morning labs reviewed. CBC unremarkable. BMP showing mild hyponatremia with sodium of 135 and hypercarbia with bicarb of 32. Magnesium normal findings at 1.9. Liver profile unremarkable. CODE STATUS: Full code DVT prophylaxis: Lovenox Anticipated discharge date: Pending clinical course Anticipated discharge place: Home Patient was seen independently by Nurse Pracitioner. This document was prepared using Guroo dictation software. Please allow for errors in disc inspector, while rare they do occur. Arthur Douglass NP rendered care for this patient independently, reviewed the findings and plan as documented in the note above and agree with plan. I did not physically speak with or examine the patient on this date. Objective - Vital Signs Vital signs: Vital Signs Temp 98.5 F 11/20/24 01:58 Pulse 65 11/20/24 01:58 Resp 18 11/20/24 01:58 BP 138/102 11/20/24 01:58 Pulse Ox 98 11/20/24 01:58 FiO2 Intake & Output 11/19/24 11/20/24 11/20/24 18:59 06:59 18:59 Output Total 400 Balance -400 Weight 72.575 kg 72.575 kg Output: Urine 400 Other: Voiding Method Urinal - Labs CBC & Chem 7: 11/20/24 11:08 11/20/24 11:08 Labs: Abnormal Lab Results - Last 24 Hours (Table) 11/19/24 11/19/24 Range/Units 15:12 23:24 Glucose 102 H (74-99) mg/dL U Benzodiazepines Scrn Detected H (NotDetected) Serum Alcohol 241 H* mg/dL
[2024-11-20] MEDS ORDERED: HYDROcodone/APAP 5-325MG 1 EACH TAB PO PRN (15:46)
[2024-11-20] MEDS: SODIUM CHLORIDE 0.9% 1,000 ML IV SCH (16:54)
[2024-11-20] MEDS ORDERED: ARTIFICIAL TEARS OINTMENT 3.5 GM TUBE BOTH EYES PRN (19:44)
[2024-11-21] MEDS: LORazepam 0.5 MG TAB PO PRN (01:33)
[2024-11-21 09:06] VITALS: BP 160/99; PULSE 77; RESP 18; TEMP 97.5
[2024-11-21 10:52] LABS: HCT 48.7 % (39.6-50.0); HGB 15.9 g/dL (13.0-17.0); MCH 31.8 pg (27.0-32.0); MCHC 32.6 g/dL (32.0-37.0); MCV 97.4 FL (80.0-97.0); Mean Platelet Volume 9.8 FL (9.5-12.2); NRBC Per 100 WBC 0 X 10*3/uL (0.00-0.01); Platelet Count 258 X 10*3/uL (140-440)
--- NOTE | 2024-11-21 10:57 | P.DS ---
Providers Date of admission: 11/19/24 20:40 Expected date of discharge: 11/21/24 Attending physician: María Camilo MD Consults: 11/20/24 01:13 Consult Physician Stat Consulting Provider: Enzo Garcia Consult Reason/Comments: Fracture involving the left proximal humerus Do you want consulting provider notified?: Yes Primary care physician: [place] Hospital Course: Discharge Diagnosis: Alcohol withdraw with complications Alcohol withdrawal seizures Left humeral fracture. Patient was evaluated by orthopedic surgery, and Klely BOB stated pt cleared from their perspective for outpatient follow up in their office in one week. Hypertension. Monitor vital signs and continue daily medication regimen with losartan 25 mg daily. Anxiety with depression PTSD Hospital course: Patient is a pleasant 39-year-old male with a past medical history of daily alcohol abuse drinking a 1.5 fifths of alcohol daily, previous alcohol withdrawal seizures, hypertension, autoimmune disorder, anxiety with depression, and PTSD. He presented to the emergency department on 11/19/2024 secondary to evaluation for alcohol withdraw and seizures. Patient reported trying to quit drinking on his own cutting back significantly. Upon arrival to our facility, patient underwent evaluation in the emergency department. Vital signs upon arrival show blood pressure 199/117, heart rate 86, respiratory rate 16, temp 97.8 F, and SpO2 of 98% on room air. EKG was completed showing normal sinus rhythm at 78 bpm with no significant T wave or ST abnormality showing no signs of acute ischemia upon personal review and interpretation. X-ray right hand completed negative for acute fracture or dislocation. For a right foot negative for acute fracture or dislocation. X-ray left scapula showing bony fragment seen on one of the views submitted site of origin is indeterminant but possibly originating from fragment of the posterior greater tuberosity of the proximal humerus recommending CT. Chest x-ray was completed negative for acute cardiopulmonary process. X-ray cervical, thoracic, and lumbar spine negative for acute fracture or dislocation. CT of scapula and left upper extremity was completed with reports of concerns for a left inferior glenoid Bankart deformity with loose ossific fragment likely secondary to fracture involving the proximal humerus, no dislocation reported at this time. Labs completed and reviewed. CBC was unremarkable. Coagulation profile normal findings. BMP unremarkable. Blood glucose 102. Magnesium 2.1. Liver profile normal findings. Troponin was negative at less than 0.012. Amylase and lipase normal findings. Blood alcohol 241. Urine drug screen positive for benzodiazepines otherwise negative. Patient admitted under our services with consultation to orthopedic surgery. Patient was evaluated by orthopedic surgery, and Kelly BOB stated pt cleared from their perspective for outpatient follow up in their office in one week. Patient was placed on CIWA protocol and monitored closely throughout medical detox. He was also placed on scheduled Librium. Ativan needs have been minimal and patient reports feeling great and ready to go home. Patient states he will not drink and family at bedside also stating they have ensure there is no alcohol in the home and will be with him [id number]. Patient discharged with 4-day Librium taper and provided with outpatient community resources available to him. Strongly recommended attending AA meetings. Patient to follow-up outpatient with PCP in 1 to 2 days. Physical exam: Vital signs reviewed and stable. General: Nontoxic, no distress and appears stated age. Derm: Skin warm and dry, normal coloration for ethnicity. Head: Atraumatic, normocephalic and symmetric. Eyes: EOM's intact, no lid lag, and anicteric sclera Mouth: no lip lesions, mucus membranes moist Cardiovascular: regular rate and rhythm with normal S1S2, no murmur, positive posterior tibial pulses bilaterally, and cap refill < 2 seconds. Lungs: Respirations even, regular, and unlabored on room air. Lungs CTA bilaterally, no rhonchi, no rales, no wheezing, and no accessory muscle usage. Abdominal: soft, nontender to palpation, no guarding, no appreciable org anomegaly Ext: ROM intact. No gross muscle atrophy, no edema, no contractures Neuro: Speech clear, face symmetrical and CN II-XII grossly intact with no noted focal neuro deficits Psych: Alert and oriented to person, place, time, and situation. Appropriate and pleasant affect. A total of 33 minutes of time were spent preparing this complex discharge s danni. Pt was discharged on 11/21/2024 at 10:55 AM Patient was seen independently by Nurse Practitioner. This document was prepared using Quickcue dictation software. Please allow for errors in semiconductor wafers marker while rare they do occur. Arthur Douglass NP rendered care for this patient independently, reviewed the findings and plan as documented in the note above. I did not physically speak with or examine the patient on this date. Patient Condition at Discharge: Stable Plan - Discharge Summary Discharge Rx Participant: Yes New Discharge Prescriptions: New chlordiazePOXIDE HCl [Librium] See Rx Instructions .ROUTE .COMPLEX 4 Days #10 cap Continue hydrOXYzine pamoate [Vistaril] 25 mg PO QID PRN PRN Reason: Anxiety EPINEPHrine (Auto Inject) [Epipen] 0.3 mg IM ONCE PRN PRN Reason: Anaphylaxis Cholecalciferol (Vitamin D3) [Vitamin D3 (50 Mcg = 2000 Iu) Chew Tab] 50 mcg PO DAILY Thiamine [Vitamin B-1] 100 mg PO DAILY #30 tablet Losartan [Cozaar] 25 mg PO DAILY 30 Days #30 tab Folic Acid 1 mg PO DAILY #30 tab Multivitamins, Thera [Multivitamin (formulary)] 1 tab PO DAILY Discharge Medication List Losartan [Cozaar] 25 mg PO DAILY 30 Days #30 tab 08/28/24 [Rx] Cholecalciferol (Vitamin D3) [Vitamin D3 (50 Mcg = 2000 Iu) Chew Tab] 50 mcg PO DAILY 11/11/24 [History] EPINEPHrine (Auto Inject) [Epipen] 0.3 mg IM ONCE PRN 11/11/24 [History] hydrOXYzine pamoate [Vistaril] 25 mg PO QID PRN 11/11/24 [History] Folic Acid 1 mg PO DAILY #30 tab 11/12/24 [Rx] Thiamine [Vitamin B-1] 100 mg PO DAILY #30 tablet 11/12/24 [Rx] Multivitamins, Thera [Multivitamin (formulary)] 1 tab PO DAILY 11/15/24 [History] chlordiazePOXIDE HCl [Librium] See Rx Instructions .ROUTE .COMPLEX 4 Days #10 cap 11/21/24 [Rx] Follow up Appointment(s)/Referral(s): Ludwin Lugo [NON-STAFF] - Georgina Lugo [NON-STAFF] - Luca Urbina MD [STAFF PHYSICIAN] [place] [facility] [place] - 1-2 days Activity/Diet/Wound Care/Special Instructions: Activity: As tolerated. Take breaks as needed. Diet: Resume regular diet. Special Instructions: As we discussed at bedside, it is strongly recommended to avoid any and all alcohol use as well as situations/parties in which alcohol will be used by others. You have been provided with outpatient resources available to you, recommending AA meetings and following up with your PCP at [facility]. [place] state law states no driving until seizure free for 6 months. It is also advised to avoid climbing ladders, operating dangerous or heavy machinery or unsupervised swimming until seizure free for 6 months. Wishing you a wonderful holiday season and a happy healthy new year on your journey toward sobriety! Thank you for allowing us to participate in your care, it was truly a pleasure having you for our patient!!! . Discharge/Stand Alone Forms: AA Meetings [address] - [facility], AA Meetings [place], Outpatient Counseling, In Substance Abuse Facilities Discharge Disposition: HOME SELF-CARE
[2024-11-21 12:26] LABS: ALT 22 U/L (10-49); AST 34 U/L (14-35); Albumin 3.9 g/dL (3.8-4.9); Alkaline Phosphatase 69 U/L (41-126); Blood Urea Nitrogen 13.3 mg/dL (9.0-27.0); Calcium 9.1 mg/dL (8.7-10.3); Carbon Dioxide 23.3 mmol/L (21.6-31.8); Chloride 104 mmol/L (96-109); Globulin 2.6 g/dL (1.6-3.3); Glucose 96 mg/dL (70-110); Potassium 3.9 mmol/L (3.5-5.5); Sodium 139 mmol/L (135-145); Total Bilirubin 1.2 mg/dL (0.3-1.2); Total Protein 6.5 g/dL (6.2-8.2)
== END 2024-11-21 11:34 | disposition home or self-care (01) ==
LOC: EC 13:46 → 4SSUR 20:40
PROVIDERS: ADMIT Internal Medicine; ATTEND Internal Medicine
DX: F10.230 Alcohol dependence with withdrawal, uncomplicated (principal); F10.220 Alcohol dependence with intoxication, uncomplicated; Y90.8 Blood alcohol level of 240 mg/100 ml or more; R56.9 Unspecified convulsions; I10 Essential (primary) hypertension; S42.202A Unspecified fracture of upper end of left humerus, initial encounter for closed fracture; X58.XXXA Exposure to other specified factors, initial encounter; E55.9 Vitamin D deficiency, unspecified; F41.8 Other specified anxiety disorders; F43.10 Post-traumatic stress disorder, unspecified; Z79.899 Other long term (current) drug therapy
CPT/HCPCS: 96372 ×2; 96374; 99285; 36415; 93005; 80053 ×3; 82150; 83690; 83735 ×3; 84100; 84484; 85025; 85027 ×2; 85610; 80306; 80320; 72082; 73010; 73120; 73620; 71045; 73200; G0378 ×3; J2060; J1650 ×2